=== PATIENT | female | born 1950 | race Caucasian/White ===

== ENCOUNTER → 2017-07-01 | Outpatient (CLI) | payer MEDICARE ==
[~2017-07-01] MED LIST: CALCIUM 600 +1 EAC8 PO; FOLIC ACID1 MG PO; IBUPROFEN PO; METHOTREXATE2.5 M1 PO; MILK THISTLE PO; OMEPRAZOLE20 M1 PO; VASOTEC10 MG PO; VITAMIN D35000 UNIT PO; [UNRECOGNIZED DRUG - OTHER] PO
--- NOTE | 2017-07-01 14:34 | Diagnostic Imaging Report ---
TECHNIQUE: Magnetic resonance imaging of the RIGHT KNEE was performed WITHOUT injected contrast. HISTORY: Fall, medial meniscal tear, reported history of rheumatoid arthritis COMPARISON: None available. FINDINGS: LIGAMENTS AND TENDONS: ACL: Intact PCL: Intact Collateral ligaments: Intact Iliotibial band: Unremarkable Popliteal tendon: Intact Extensor mechanism: Intact JOINT: Menisci: Medial: Predominantly oblique tear of the body and adjacent posterior horn extending to the tibial articular surface with associated 1.1 cm (AP) x 0.4 cm (ML) x 0.6 cm (CC) meniscal fragment flipped into the inferomedial joint recess. Lateral: Intact Articular Cartilage: Medial Compartment: High-grade to full-thickness erosion of the weightbearing cartilage. Adjacent mild subchondral bone marrow edema and cystic changes. Lateral Compartment: Low-grade erosion and fissuring of the weightbearing cartilage. Patellofemoral Compartment: Full-thickness erosion at the patellar apex and adjacent facets. Joint Fluid: Small effusion and synovitis. BONES: No focal or infiltrative bone marrow replacing abnormality. No acute fracture. SOFT TISSUES: Otherwise, unremarkable. IMPRESSION: 1. Patellofemoral and medial compartment predominant tricompartmental degenerative changes, including degenerative tearing of the medial meniscus. An acute on chronic tear is possible given the provided history. 2. Reactive synovitis and small associated joint effusion. Signed by: Dr. Graham Bobby D.O., M.M.M. on 07/01/2017 2:30 PM
== END ==
LOC: MRI 12:14
PROVIDERS: ATTEND Specialist
DX: S83.241A Other tear of medial meniscus, current injury, right knee, initial encounter (principal)

== ENCOUNTER → 2017-07-16 | Day surgery (SDC) | payer MEDICARE ==
[2017-07-14 11:00] LABS: BASOPHILS # (AUTO) 0.1 (0.0-0.1); BASOPHILS % 0.6 % (0.0-1.0); EOSINOPHILS # (AUTO) 0.3 (0.0-0.4); EOSINOPHILS % 3.5 % (0.0-6.0); HEMATOCRIT 42.1 % (34.2-44.1); HEMOGLOBIN 13.9 g/dL (12.0-16.0); LYMPHOCYTES # (AUTO) 1.9 (1.0-3.2); MEAN CORPUSCULAR HEMOGLOBIN 30.7 pg (28-32); MEAN CORPUSCULAR VOLUME 92.9 fL (81-99); MONOCYTES % 11.5 % (4.4-11.3); NEUTROPHILS # (AUTO) 5.3 (2.1-6.9); NEUTROPHILS % 61.8 % (38.7-80.0); PLATELET COUNT 248 x10e3/uL (140-360); RED BLOOD COUNT 4.53 x10e6/uL (3.6-5.1)
--- NOTE | 2017-07-14 11:36 | Diagnostic Imaging Report ---
PROCEDURE: Frontal and lateral views of the chest. COMPARISON: 09/22/13 INDICATIONS: PRE OP FINDINGS: Lines/tubes: None. Lungs: The lungs are well inflated and clear. There is no evidence of pneumonia or pulmonary edema. Unchanged right lower lung field nodular density, likely a calcified granuloma. Pleura: There is no pleural effusion or pneumothorax. Heart and mediastinum: The heart and the mediastinum are normal. Bones: No acute bony abnormality. IMPRESSION: 1. No acute cardiopulmonary disease. Dictated by: Cruz Lorenzo M.D. on 07/14/2017 at 11:45 Electronically approved by: Cruz Lorenzo M.D. on 07/14/2017 at 11:45
[~2017-07-16] MED LIST changes: +ALENDRONATE SOD35 MG PO; +BUPIVACAINE HCL 0.5% INJ 30 ML VIAL INJ ONE; +CEFAZOLIN SOD 2 GM/D5W 50ML 50 ML IV ONE; +DEXAMETHASONE SOD PHOS INJ 4 MG/ML VIAL ONE; +DIOVAN160 MG PO; +EPHEDRINE SULFATE INJ 50 MG/10 ML SYR ONE; +FENTANYL CITRATE/PF 100MCG/2 ML INJ ONE; +GLUCOSAMINE1000 MG PO; +LEVOCETIRIZINE D5 MG PO; +LIDOCAINE HCL 2% LOCAL INJ 5 ML SDV VIAL INJ ONE; +MIDAZOLAM HCL 2 MG/2 ML VIAL ONE; +MONTELUKAST SOD10 MG PO; +MULTI-VITAMIN1 EACH; +NABUMETONE500 MG PO; +NORCO 10-325 T1 EACH PO; +ONDANSETRON HCL INJ 2 MG/ML VIAL ONE; +PROPOFOL IV EMULSION 10 MG/ML 20 ML VIAL ONE; +SEVOFLURANE INHAL SOLN 250 ML PEN BTL ONE; +SUPER B COMPLE150 MG PO
--- NOTE | 2017-07-16 09:07 | Operative Report ---
DATE OF PROCEDURE: July 16, 2017 PREOPERATIVE DIAGNOSES 1. Right knee medial meniscus tear. 2. Right knee degenerative joint disease of the knee. POSTOPERATIVE DIAGNOSES 1. Right knee medial meniscus tear. 2. Right knee degenerative joint disease of the knee. OPERATIONS/PROCEDURES PERFORMED 1. Right knee examination under anesthesia. 2. Right knee arthroscopy. 3. Right knee partial medial meniscectomy. 4. Right knee chondroplasties of the patella, trochlea, medial femoral condyle, medial tibial plateau, lateral femoral condyle and lateral tibial plateau. SENIOR SYSTEMS ENGINEER: None. ANESTHESIA: General endotracheal intubation anesthesia. IV FLUIDS: Per the anesthesia record. BRIEF DESCRIPTION OF THE PATIENT'S OPERATIVE PROCEDURE: Ms. Tineo was taken to the operating room and placed in the supine position on the operating table. Following the induction of general anesthesia as well as endotracheal intubation, the patient's right lower extremity was examined under anesthesia. She was found to have a mild effusion within the knee joint but an otherwise ligamentously stable knee. The patient's lower extremity was prepped and draped in the standard surgical fashion. A 2-portal technique was used to provide this patient arthroscopic evaluation of the knee joint. Examination of the suprapatellar pouch, medial and lateral gutters found no evidence of loose bodies. There was, however, evidence of chondromalacia of the patellar and trochlear surfaces. The scope was advanced to the medial compartment. Examination of the medial compartment demonstrated a torn and macerated medial meniscus. There was also chondromalacia of the articulating surfaces. A combination of biting forceps and a motorized shaver was used to resect the torn portion of the meniscus. Chondroplasties of the medial femoral condyle and medial tibial plateau were performed at this time. The scope was then advanced into the intracondylar notch. The anterior cruciate ligament was identified and found to be intact. The scope was advanced to the lateral compartment. There was chondromalacia of the articulating surfaces. Chondroplasties of the lateral femoral condyle and lateral tibial plateau were performed at this time. The scope was then placed into the suprapatellar pouch, and chondroplasties of the patella and trochlea were performed. The knee was deflated of its sterile normal saline. Each of the portal sites was closed using 4-0 nylon suture. The portal sites as well as the knee itself were then injected with 0.5% Marcaine with epinephrine. Sterile dressings were applied. The patient was awakened and taken to the postanesthesia care unit in stable condition. Job#: [id number] MAEGAN
== END | disposition home or self-care (01) ==
LOC: OR 06:30
PROVIDERS: ATTEND Specialist
DX: S83.241A Other tear of medial meniscus, current injury, right knee, initial encounter (principal); M17.0 Bilateral primary osteoarthritis of knee; M22.41 Chondromalacia patellae, right knee; M06.9 Rheumatoid arthritis, unspecified; G47.33 Obstructive sleep apnea (adult) (pediatric); K44.9 Diaphragmatic hernia without obstruction or gangrene; I10 Essential (primary) hypertension; X58.XXXA Exposure to other specified factors, initial encounter; Z01.812 Encounter for preprocedural laboratory examination; Z01.818 Encounter for other preprocedural examination; Z68.32 Body mass index [BMI] 32.0-32.9, adult
CPT/HCPCS: 29881; 36415; 71046; 85025; 93005; J1100; J2001; J2250; J2405

== ENCOUNTER 2018-02-17 06:30 | Emergency (ER) | payer MEDICARE ==
[~2018-02-17] VITALS: Ht 160 cm; Wt 83.5 kg
[~2018-02-17 06:30] MED LIST changes: -BUPIVACAINE HCL 0.5% INJ 30 ML VIAL INJ ONE; -CEFAZOLIN SOD 2 GM/D5W 50ML 50 ML IV ONE; -DEXAMETHASONE SOD PHOS INJ 4 MG/ML VIAL ONE; -EPHEDRINE SULFATE INJ 50 MG/10 ML SYR ONE; -FENTANYL CITRATE/PF 100MCG/2 ML INJ ONE; -LIDOCAINE HCL 2% LOCAL INJ 5 ML SDV VIAL INJ ONE; -MIDAZOLAM HCL 2 MG/2 ML VIAL ONE; -ONDANSETRON HCL INJ 2 MG/ML VIAL ONE; -PROPOFOL IV EMULSION 10 MG/ML 20 ML VIAL ONE; -SEVOFLURANE INHAL SOLN 250 ML PEN BTL ONE
[2018-02-17] MEDS ORDERED: MAGNESIUM OXID400 MG PO (07:03)
[2018-02-17] MEDS ORDERED: NORCO 10-325 T1 EACH PO (07:03)
[2018-02-17] MEDS ORDERED: ONDANSETRON HCL 4 MG ORAL DISINTEGRATING TAB PO ONE (07:45)
[2018-02-17] MEDS ORDERED: MORPHINE SULFATE INJ 10 MG/ML IM NR (07:45)
[2018-02-17 08:12] VITALS: BP 136/94
--- NOTE | 2018-02-17 11:17 | Diagnostic Imaging Report ---
PROCEDURE:X-RAY RIGHT SHOULDER, COMPLETE COMPARISON:Chest radiograph 07/14/17. INDICATIONS:SHOULDER PAIN, CHRONIC, NO TRAUMA FINDINGS: There are no fractures, dislocations, lytic or blastic lesions. The bones are well-mineralized. Mild joint space narrowing in the right glenohumeral and acromioclavicular joints. CONCLUSION: Mild right glenohumeral and AC joint degenerative changes. No acute osseous abnormality. Dictated by: VIC HURD M.D. on 02/17/2018 at 7:52 Electronically approved by: VIC HURD M.D. on 02/17/2018 at 7:52
== END 2018-02-17 09:00 | disposition home or self-care (01) ==
LOC: ER 06:30
DX: M25.511 Pain in right shoulder (principal); I10 Essential (primary) hypertension; M06.9 Rheumatoid arthritis, unspecified
CPT/HCPCS: 73030; 99283; J2270

== ENCOUNTER → 2018-03-25 | Day surgery (SDC) | payer MEDICARE ==
[2018-03-23 10:05] LABS: BASOPHILS % 0.5 % (0.0-1.0); EOSINOPHILS # (AUTO) 0.4 (0.0-0.4); EOSINOPHILS % 4.9 % (0.0-6.0); HEMATOCRIT 38.8 % (34.2-44.1); LYMPHOCYTES # (AUTO) 1.3 (1.0-3.2); MEAN CORPUSCULAR HGB CONC 33.5 g/dL (31-35); MEAN CORPUSCULAR VOLUME 92.6 fL (81-99); MONOCYTES # (AUTO) 0.9 (0.2-0.8); MONOCYTES % 10.4 % (4.4-11.3); NEUTROPHILS # (AUTO) 5.6 (2.1-6.9); NEUTROPHILS % 67.8 % (38.7-80.0); PLATELET COUNT 231 x10e3/uL (140-360); RED BLOOD COUNT 4.19 x10e6/uL (3.6-5.1); RED CELL DISTRIBUTION WIDTH 13.5 % (11.7-14.4)
[~2018-03-25] MED LIST changes: +CEFAZOLIN SOD 2 GM/D5W 50ML 50 ML IV ONE; +DEXAMETHASONE SOD PHOS INJ 4 MG/ML VIAL ONE; +EPINEPHRINE HCL INJ 1 MG/ML AMP ONE; +FENTANYL CITRATE/PF 100MCG/2 ML INJ ONE; +HYDROCODONE/APAP 10MG-325MG TAB ONE; +IBUPROFEN400 MG PO; +KETOROLAC TROMETHAMINE 30 MG/ML VIAL ONE; +LIDOCAINE 2% /EPINEPHRINE 20 ML SDV INJ ONE; +LIDOCAINE HCL 2% LOCAL INJ 5 ML SDV VIAL INJ ONE; +LOSARTAN POTAS100 MG PO; +MAGNESIUM OXID400 MG PO; +MIDAZOLAM HCL 2 MG/2 ML VIAL ONE; +ONDANSETRON HCL INJ 2 MG/ML VIAL ONE; +PHENYLEPHRINE HCL 1% 10 MG/ML VIAL ONE; +PROPOFOL IV EMULSION 10 MG/ML 20 ML VIAL ONE; +ROCURONIUM BROMIDE 10 MG/ML 5ML VIAL ONE; +ROPIVACAINE 0.5% 5 MG/ML 30 ML SDV ONE; +SEVOFLURANE INHAL SOLN 250 ML PEN BTL ONE
[2018-03-25 11:30] VITALS: BP 116/74
--- NOTE | 2018-03-25 21:05 | Operative Report ---
DATE OF PROCEDURE: March 25, 2018 PREOPERATIVE DIAGNOSES 1. Right shoulder rotator cuff tear. 2. Right shoulder acromioclavicular joint arthrosis. POSTOPERATIVE DIAGNOSES 1. Right shoulder rotator cuff tear. 2. Right shoulder synovitis. 3. Right shoulder labral tear. 4. Right shoulder biceps tendon tear. 5. Right shoulder acromioclavicular joint arthrosis. OPERATIONS AND PROCEDURES PERFORMED 1. The patient underwent right shoulder examination under anesthesia. 2. Right shoulder arthroscopy. 3. Right shoulder arthroscopic debridement of synovitis. 4. Right shoulder arthroscopic debridement of labral tear. 5. Right shoulder arthroscopic biceps tenodesis. 6. Right shoulder arthroscopic rotator cuff repair. 7. Right shoulder arthroscopic subacromial decompression acromioplasty. 8. Right shoulder arthroscopic distal clavicle resection. MANAGER OF PURCHASING: None. ANESTHESIA: General endotracheal intubation anesthesia as well as a regional block. IV FLUIDS: As per the anesthesia record. BRIEF DESCRIPTION OF THE PATIENT'S OPERATIVE PROCEDURE: Ms. Tineo was taken to the operating room, placed in supine position on operating table. Following induction of general anesthesia as well as endotracheal intubation, the patient's right upper extremity was examined under anesthesia. She was found to have full passive range of motion of the shoulder joint. There were no gross abnormalities of the shoulder itself. The patient's upper extremity was prepped and draped in standard surgical fashion. Standard posterolateral and anterior portal was created without difficulty. The scope was placed within the shoulder joint atraumatically. Examination of the glenohumeral articulation demonstrated intra-articular synovitis. There were no loose bodies in the shoulder joint. There was no significant chondromalacia of the glenoid or the humeral surfaces. A probe was placed in the shoulder joint and examination of the biceps tendon demonstrated tearing of the biceps tendon at its base as well as a superior labral tear. The labrum and biceps anchor was unstable. Significant damage within the both structures. Examination of the rotator cuff tissue demonstrated a partial thickness tear of the leading edge of the rotator cuff tissue. Shaver was placed in the shoulder joint and the labrum was debrided. The biceps anchor was also debrided at this time. Given the degree of damage, the decision was then made to provide the patient with biceps tenodesis. The rotator interval was debrided and sutures were shuttled through the rotator interval capturing the biceps tendon. The biceps was then released from its attachment to the superior edge of the glenoid. The stump of the biceps was then debrided. The biceps was then drawn using the sutures into the rotator interval. There was found to be no impingement motion of the shoulder joint. She shaver was also used to debride the torn rotator cuff. The rotator cuff tear was completed and the insertion site for the rotator cuff was debrided to a bleeding bony bed. Synovitis was also debrided at this time. The shoulder was deflated with sterile normal saline. The scope was placed in the subacromial space and significant bursal inflammation was encountered. A lateral portal was created through an outside-in technique. A shaver was used to provide the patient a subacromial decompression. The coracoacromial ligament was also resected at this time. An anterolateral accessory portal was created and through the anterolateral portal, the insertion site was further debrided to a bleeding bony bed. A single triple-loaded suture anchor was inserted in the greater tuberosity of the humerus. The suture arms from that anchor were woven through the rotator cuff tissue and rotator cuff tissue was advanced and tied firmly in its normal insertion site. This resulted in complete reapproximation of the rotator cuff injury. The biceps tenodesis was also completed at this time by tying the sutures over the rotator interval. A shaver was then used to provide the patient with acromioplasty. Once the acromioplasty was completed, the shoulder was placed through motion and the rotator cuff was found to not impinge on the acromion. Attention was then turned to the patient's AC joint arthrosis. The anterior portal was translated into the subacromial space at the level of the AC joint. A shaver was then placed anteriorly and a 1-cm section of the distal clavicle was resected using the shaver. Once this was completed, the shaver was transferred to the anterior portal to confirm the degree of completeness of the distal clavicle resection. The shoulder was then deflated with sterile normal saline. The wounds were closed in a single layer fashion. Sterile dressings were applied and the patient was provided with shoulder immobilizer, awakened and taken to the postanesthesia care unit in stable condition. Job#: [id number] RADHA
== END | disposition home or self-care (01) ==
LOC: OR 06:12
PROVIDERS: ATTEND Specialist
DX: S46.091A Other injury of muscle(s) and tendon(s) of the rotator cuff of right shoulder, initial encounter (principal); S43.431A Superior glenoid labrum lesion of right shoulder, initial encounter; S46.211A Strain of muscle, fascia and tendon of other parts of biceps, right arm, initial encounter; M19.011 Primary osteoarthritis, right shoulder; M65.811 Other synovitis and tenosynovitis, right shoulder; M06.9 Rheumatoid arthritis, unspecified; G47.33 Obstructive sleep apnea (adult) (pediatric); I10 Essential (primary) hypertension; X58.XXXA Exposure to other specified factors, initial encounter; Z88.6 Allergy status to analgesic agent; Z88.8 Allergy status to other drugs, medicaments and biological substances; Z01.810 Encounter for preprocedural cardiovascular examination; Z01.812 Encounter for preprocedural laboratory examination; Z68.32 Body mass index [BMI] 32.0-32.9, adult
CPT/HCPCS: 29824; 29826; 29827; 29828; 36415; 85025; 93005; J0171; J1100; J1885; J2001 ×2; J2250; J2370; J2405; J2795

== ENCOUNTER → 2018-08-21 | Outpatient (CLI) | payer MEDICARE ==
[~2018-08-21] MED LIST changes: -CEFAZOLIN SOD 2 GM/D5W 50ML 50 ML IV ONE; -DEXAMETHASONE SOD PHOS INJ 4 MG/ML VIAL ONE; -EPINEPHRINE HCL INJ 1 MG/ML AMP ONE; -FENTANYL CITRATE/PF 100MCG/2 ML INJ ONE; -HYDROCODONE/APAP 10MG-325MG TAB ONE; -KETOROLAC TROMETHAMINE 30 MG/ML VIAL ONE; -LIDOCAINE 2% /EPINEPHRINE 20 ML SDV INJ ONE; -LIDOCAINE HCL 2% LOCAL INJ 5 ML SDV VIAL INJ ONE; -MIDAZOLAM HCL 2 MG/2 ML VIAL ONE; -ONDANSETRON HCL INJ 2 MG/ML VIAL ONE; -PHENYLEPHRINE HCL 1% 10 MG/ML VIAL ONE; -PROPOFOL IV EMULSION 10 MG/ML 20 ML VIAL ONE; -ROCURONIUM BROMIDE 10 MG/ML 5ML VIAL ONE; -ROPIVACAINE 0.5% 5 MG/ML 30 ML SDV ONE; -SEVOFLURANE INHAL SOLN 250 ML PEN BTL ONE
== END ==
LOC: MAMMO 08:04
PROVIDERS: ATTEND Family Medicine
DX: Z12.31 Encounter for screening mammogram for malignant neoplasm of breast (principal)
CPT/HCPCS: 77067

== ENCOUNTER 2018-11-10 10:30 | Observation (INO) | payer MEDICARE ==
[~2018-11-10] VITALS: Ht 160 cm; Wt 83.0 kg
[~2018-11-10 10:30] MED LIST changes: +DICLOFENAC PO; +MISOPROSTOL100 MCG PO; +SUCRALFATE1 GM PO; +SYNTHROID50 MCG PO
[2018-11-10 11:02] LABS: INR 0.9; PROTHROMBIN TIME 12.6 seconds (11.9-14.5)
[2018-11-10 11:03] LABS: PARTIAL THROMBOPLASTIN TIME 31.4 seconds (23.8-35.5)
[2018-11-10] MEDS ORDERED: CEFAZOLIN SOD 2 GM/D5W 50ML 50 ML IV ONE (11:12)
[2018-11-10] MEDS ORDERED: BACITRACIN 50,000 UNIT VIAL ONE (11:37)
[2018-11-10] MEDS ORDERED: ACETAMINOPHEN 1000 MG/100 ML 100 ML IV ONE (12:59)
[2018-11-10] MEDS: SODIUM CHLORIDE 0.9% 1000ML 1,000 ML IV SCH (15:03)
[2018-11-10] MEDS ORDERED: ACETAMINOPHEN 1000 MG/100 ML IV PRN (15:15)
[2018-11-10] MEDS ORDERED: HYDROMORPHONE 0.2MG/ML-SOD CHL 30ML PCA SYRINGE IV PRN (15:15)
[2018-11-10] MEDS ORDERED: NALOXONE HCL INJ 0.4 MG/ML AMP IV PRN (15:15)
[2018-11-10] MEDS ORDERED: ONDANSETRON HCL INJ 2MG/ML 2ML 2 MG/ML VIAL IV PRN (15:15)
[2018-11-10] MEDS ORDERED: HYDROMORPHONE 2MG/ML 2 MG/ML ML ONE (15:50)
--- NOTE | 2018-11-10 16:10 | NUR ---
ARRIVED VIA STRETCHER FROM PACU, AWAKENS TO VOICE, ANSWERS TO NAME, CLOSES EYES, RR EVEN AND NONLABORED, ZUNIGA TO BSD WITH CLEAR YELLOW URINE NOTED, DRESSING TO RLE JOSEFA, BILAT FOOT PUMPS PLACED PER MD ORDER, ORIENTED TO ROOM AND CALL LIGHT SYSTEM, CALL LIGHT WITHIN REACH, FAMILY AT SIDE
--- NOTE | 2018-11-10 16:27 | Diagnostic Imaging Report ---
Right knee radiographs-2 views History: Postoperative Findings: Status post right total knee arthroplasty and patellar resurfacing with prosthetic components in anatomic alignment. Hardware appears intact. Overlying subcutaneous emphysema and surgical skin radha are present. No evidence of acute fracture. IMPRESSION: Status post right total knee replacement in anatomic alignment. Signed by: Dr. Jamaal Canales MD on 11/10/2018 4:24 PM
[2018-11-10 16:28] VITALS: BP 161/83
--- NOTE | 2018-11-10 17:15 | NUR ---
TOLERATING SIPS OF CLEAR LIQUID, CALL LIGHT WITHIN REACH, PHYSICAL THERAPIST ATTEMPTED TO SEE PT, UNABLE AT THIS TIME DUE TO PT "SLEEPING"
[2018-11-10 17:17] VITALS: BP 161/83
[2018-11-10 17:22] VITALS: BP 161/83
[2018-11-10] MEDS ORDERED: SEVOFLURANE INHAL SOLN 250 ML PEN BTL ONE (17:39)
[2018-11-10] MEDS ORDERED: KETOROLAC TROMETHAMINE 30 MG/ML VIAL ONE (17:39)
[2018-11-10] MEDS ORDERED: LIDOCAINE HCL 2% LOCAL INJ 5 ML SDV VIAL INJ ONE (17:39)
[2018-11-10] MEDS ORDERED: DEXAMETHASONE SOD PHOS INJ 4 MG/ML VIAL ONE (17:39)
[2018-11-10] MEDS ORDERED: PROPOFOL IV EMULSION 10 MG/ML 20 ML VIAL ONE (17:39)
[2018-11-10] MEDS ORDERED: ONDANSETRON HCL INJ 2MG/ML 2ML 2 MG/ML VIAL ONE (17:39)
[2018-11-10] MEDS ORDERED: MIDAZOLAM HCL 2 MG/2 ML VIAL ONE (17:56)
[2018-11-10] MEDS ORDERED: FENTANYL CITRATE/PF 100MCG/2 ML INJ ONE (17:56)
--- NOTE | 2018-11-10 18:15 | NUR ---
MD RAJAN AWARE OF CONSULT
--- NOTE | 2018-11-10 18:37 | NUR ---
PT FAMILY VERIFIED HOME MEDICATIONS WERE CORRECT
[2018-11-10] MEDS ORDERED: LIDOCAINE HCL 2% LOCAL 20 ML VIAL ONE (19:16)
[2018-11-10] MEDS ORDERED: ROPIVACAINE 0.5% 5 MG/ML 30 ML SDV ONE (19:16)
[2018-11-10 19:30] VITALS: BP 161/83
[2018-11-10] MEDS: CEFAZOLIN SOD 1 GM/NS 50ML 50 ML IV SCH (19:43)
[2018-11-10] MEDS ORDERED: HYDROCODONE/APAP 10MG-325MG TAB PO PRN (19:45)
[2018-11-10 20:00] VITALS: BP 142/78
--- NOTE | 2018-11-10 20:37 | Consultation ---
DATE OF CONSULTATION: 11/10/2018 REASON FOR CONSULTATION: Medical management. HISTORY OF PRESENT ILLNESS: This is a 68-year-old white woman, who was admitted to [facility] Emergency room with diagnosis of severe end-stage right knee osteoarthritis. The patient underwent successful right total knee replacement today, which was performed by Dr. John Arguello. The patient states her pain is well controlled at this time. REVIEW OF SYSTEMS: GENERAL: Weight has been stable. No fever or chills. HEENT: No headaches. No vision changes. CARDIOVASCULAR/RESPIRATORY: No chest pain. No shortness of breath, but she does have chronic cough secondary to chronic bronchitis. GASTROINTESTINAL: No nausea, vomiting, or constipation. She does have GERD symptoms. GENITOURINARY: No UTI symptoms. NEUROMUSCULAR: The patient complains of severe arthritis in her left knee also. PAST SURGICAL HISTORY: 1. Right knee meniscal repair. 2. Left knee meniscal repair. 3. Right total knee replacement today. 4. Laparoscopic cholecystectomy. 5. Hysterectomy. 6. Right shoulder surgery (rotator cuff repair). FAMILY HISTORY: Mother of cerebral aneurysm at age 42. ALLERGIES: NO KNOWN DRUG ALLERGIES. SOCIAL HISTORY: Remains single. She states that she does not live alone. She is employed as a customer operations representative. No history of tobacco or alcohol use. MEDICATIONS: Home medications are: 1. Alendronate 35 mg daily. 2. Calcium with vitamin D once daily. 3. Vitamin D3 5000 units daily. 4. Folic acid 1 mg daily. 5. Tyrone 10/325 one daily p.r.n. pain. 6. Zyrtec 5 mg daily. 7. Synthroid 50 mcg daily. 8. Losartan 100 mg daily. 9. Magnesium oxide 400 mg daily. 10. Methotrexate 2.5 mg once a week. 11. Milk Thistle 240 mg daily. 12. Misoprostol 100 mcg b.i.d. 13. Singulair 10 mg daily. 14. Multivitamin daily. 15. Omeprazole 20 mg daily. 16. Carafate 1 g b.i.d. 17. Vitamin super B complex once a daily. 18. Diclofenac 75 mg daily. PHYSICAL EXAMINATION: GENERAL: She is somnolent, but arousable. She does not appear to be any obvious distress. Her adult female friend is at bedside. VITAL SIGNS: Height 5 feet 3 inches, weight 181 pounds, and BMI 32. Blood pressure is 160/80, pulse 82, respiratory rate 12, oxygen saturation 96% on 2 L oxygen, and temperature 96.7. INTEGUMENT: Warm and dry. No pallor, jaundice, or diaphoresis. HEENT: The anterior sclerae with moist mucous membranes. NECK: Supple. CARDIOVASCULAR: Distant heart sounds. Regular rate and rhythm, and S4 gallop. LUNGS: No rales. No rhonchi or wheezes. ABDOMEN: Obese. Benign. EXTREMITIES: No edema. She is currently wearing compression stockings as well as sequential compression devices. NEUROLOGIC: Intact. DIAGNOSES: 1. Status post right total knee replacement. 2. Severe bilateral knee osteoarthritis. 3. Rheumatoid arthritis. 4. Obesity, BMI 32, complicated underlying hypertension and knee degenerative joint disease. 5. Chronic bronchitis. PLAN: 1. Resume home medications, but will hold the diclofenac since she is on Xarelto. 2. Encourage incentive spirometer use to prevent atelectasis. 3. Pain control. 4. Mobilize with physical therapy. 5. We will proceed with oral Xarelto to prevent deep venous thrombosis. 6. We will follow hemoglobin and hematocrit. I would like to thank Dr. Carrizales for this generous consult. I spent 45 minutes in the care of this patient. MD YURI Mcnair/BORIS /[id number] SOURAV
[2018-11-11] VITALS (8 sets, daily range): BP systolic 124–150; BP diastolic 65–90
[2018-11-11] MEDS: SODIUM CHLORIDE 0.9% 1000ML 1,000 ML IV SCH (00:21)
[2018-11-11] MEDS: CEFAZOLIN SOD 1 GM/NS 50ML 50 ML IV SCH ×2 (03:44→11:14)
[2018-11-11] MEDS: LEVOTHYROXINE SODIUM 50 MCG TAB PO SCH (04:40)
[2018-11-11 07:13] LABS: BASOPHILS % 0.2 % (0.0-1.0); EOSINOPHILS % 0.1 % (0.0-6.0); HEMATOCRIT 29.2 % (34.2-44.1); HEMOGLOBIN 9.7 g/dL (12.0-16.0); MEAN CORPUSCULAR HEMOGLOBIN 30.7 pg (28-32); MEAN CORPUSCULAR HGB CONC 33.2 g/dL (31-35); MEAN CORPUSCULAR VOLUME 92.4 fL (81-99); MONOCYTES # (AUTO) 1.6 (0.2-0.8); NEUTROPHILS # (AUTO) 8.5 (2.1-6.9); PLATELET COUNT 303 x10e3/uL (140-360); RED BLOOD COUNT 3.16 x10e6/uL (3.6-5.1); RED CELL DISTRIBUTION WIDTH 12.8 % (11.7-14.4)
--- NOTE | 2018-11-11 07:18 | NUR ---
Rcvd patient in report this am. Patient is awake in bed at this time. Patient is on BAR STEWARD at this time. Patient has a valdez cath. No s/s of distress noted
[2018-11-11 07:30] LABS: ALANINE AMINOTRANSFERASE 17 IU/L (0-55); ALKALINE PHOSPHATASE 77 IU/L (40-150); ANION GAP 11.4 mmol/L (8-16); BLOOD UREA NITROGEN 10 mg/dL (7-26); BUN/CREATININE RATIO 12 (6-25); CALCIUM 9.5 mg/dL (8.4-10.2); CARBON DIOXIDE 26 mmol/L (22-29); CHLORIDE 102 mmol/L (98-107); CREATININE, SERUM 0.84 mg/dL (0.57-1.11); EST GLOMERULAR FILTRATION RATE > 60 ML/MIN (60-); GLUCOSE 107 mg/dL (74-118); POTASSIUM 4.4 mmol/L (3.5-5.1); SODIUM 135 mmol/L (136-145)
[2018-11-11] MEDS: MAGNESIUM OXIDE 400 MG TAB PO SCH (08:40)
[2018-11-11] MEDS: MULTIVITAMINS/MINERALS TAB PO SCH (08:40)
[2018-11-11] MEDS: LORATADINE 10 MG TAB PO SCH (08:40)
[2018-11-11] MEDS: MONTELUKAST SODIUM 10 MG TAB PO SCH (08:40)
[2018-11-11] MEDS: MISOPROSTOL 100 MCG TAB PO SCH ×2 (08:40→17:18)
[2018-11-11] MEDS: FOLIC ACID 1 MG TAB PO SCH (08:40)
[2018-11-11] MEDS: SUCRALFATE 1 GM TAB PO SCH ×2 (08:40→17:18)
[2018-11-11] MEDS: LOSARTAN POTASSIUM 100 MG TAB PO SCH (08:40)
[2018-11-11] MEDS: RIVAROXABAN 10 MG TABLET PO SCH (08:40)
[2018-11-11] MEDS ORDERED: PANTOPRAZOLE SOD 40 MG TABEC PO SCH (09:00)
[2018-11-11] MEDS ORDERED: KETOROLAC TROMETHAMINE 30 MG/ML VIAL IV PRN ×2 (09:45→14:00)
--- NOTE | 2018-11-11 10:44 | NUR ---
DAWIT SPOKE TO PATIENT AT BEDSIDE REGARDING PRE- ARRANGED DISCHARGE PLAN BY DOCTOR JOAQUIN'S OFFICE. PATIENT EDUCATED IN DETAIL THEIR DISCHARGE PLAN TO RECEIVE MEDICAL EQUIPMENT FROM [facility] AND INFORMED OF HOME HEALTH SERVICES IN DETAIL, INCLUDING NUMBER OF VISITS AND WEEKLY SCHEDULE FROM [facility]. PATIENT VERBALLY AGREED. PATIENT WITH WALKER AND UNDERSTANDS TO HAVE IT AT BEDSIDE UPON DISCHARGE. [facility] (P) [phone] PATIENT ACCEPTED AND TO RECEIVE SERVICES ON 11/12. VERIFIED AND CONFIRMED BY JO AT [facility]. HOME HEALTH INFORMED PATIENT WILL BE DISCHARGED TODAY. [facility] ([facility]) (P) [phone] (F)[phone] CM CALLED [facility] AND [facility] CONFIRMED THAT EQUIPMENT IS OUT FOR DELIVERY AND [facility]ALIT WILL HAVE DROPPED OFF THE CPM, 3 IN 1 COMMMODE AND ELEVATED TOILET SEAT WITHIN 45 MIN. PATIENT ALREADY HAS WALKER.
[2018-11-11] MEDS: HYDROCODONE/APAP 10MG-325MG TAB PO PRN ×2 (12:20→17:19)
--- NOTE | 2018-11-11 13:10 | NUR ---
Removed valdez catheter at this time. Tip intact. Patient tolerated well. 10ml removed from balloon. Patient due to void in 6 hours. 300ml of straw urine noted.
[2018-11-11] MEDS ORDERED: MORPHINE SULFATE 2 MG/ML SYR 1ML IV PRN (14:30)
--- NOTE | 2018-11-11 16:12 | NUR ---
Patient voided at this time.
[2018-11-11] MEDS: MORPHINE SULFATE INJ 4 MG/ML INJ 1ML IV PRN (20:15)
[2018-11-12] MEDS: MORPHINE SULFATE INJ 4 MG/ML INJ 1ML IV PRN (01:48)
[2018-11-12 03:55] VITALS: BP 127/72
[2018-11-12] MEDS: HYDROCODONE/APAP 10MG-325MG TAB PO PRN ×3 (03:59→13:46)
[2018-11-12] MEDS: LEVOTHYROXINE SODIUM 50 MCG TAB PO SCH (05:39)
--- NOTE | 2018-11-12 06:00 | NUR ---
CHANGED DRESSING TO RIGHT KNEE. JANUARY INTACT. NO ACTIVE BLEEDING NOTED. PLACED ON CPM 55 AT THIS TIME.
[2018-11-12 07:03] LABS: BASOPHILS % 0.2 % (0.0-1.0); EOSINOPHILS % 0.2 % (0.0-6.0); HEMATOCRIT 25.7 % (34.2-44.1); HEMOGLOBIN 8.7 g/dL (12.0-16.0); LYMPHOCYTES # (AUTO) 1.6 (1.0-3.2); LYMPHOCYTES % 14.4 % (18.0-39.1); MEAN CORPUSCULAR HGB CONC 33.9 g/dL (31-35); MEAN CORPUSCULAR VOLUME 91.5 fL (81-99); MONOCYTES # (AUTO) 1.2 (0.2-0.8); MONOCYTES % 11.2 % (4.4-11.3); NEUTROPHILS # (AUTO) 7.9 (2.1-6.9); NEUTROPHILS % 73.3 % (38.7-80.0); PLATELET COUNT 281 x10e3/uL (140-360); RED BLOOD COUNT 2.81 x10e6/uL (3.6-5.1); RED CELL DISTRIBUTION WIDTH 12.7 % (11.7-14.4)
[2018-11-12 07:22] LABS: ANION GAP 10.8 mmol/L (8-16); BLOOD UREA NITROGEN 9 mg/dL (7-26); BUN/CREATININE RATIO 11 (6-25); CALCIUM 9.7 mg/dL (8.4-10.2); CARBON DIOXIDE 26 mmol/L (22-29); CHLORIDE 101 mmol/L (98-107); CREATININE, SERUM 0.79 mg/dL (0.57-1.11); EST GLOMERULAR FILTRATION RATE > 60 ML/MIN (60-); GLUCOSE 109 mg/dL (74-118); POTASSIUM 3.8 mmol/L (3.5-5.1); SODIUM 134 mmol/L (136-145)
--- NOTE | 2018-11-12 07:31 | NUR ---
Rcvd patient in report this am. Patient is asleep in bed at this time. No s/s of distress noted
[2018-11-12 07:56] VITALS: BP 136/72
[2018-11-12] MEDS: MAGNESIUM OXIDE 400 MG TAB PO SCH (08:34)
[2018-11-12] MEDS: MONTELUKAST SODIUM 10 MG TAB PO SCH (08:34)
[2018-11-12] MEDS: LORATADINE 10 MG TAB PO SCH (08:34)
[2018-11-12] MEDS: MULTIVITAMINS/MINERALS TAB PO SCH (08:34)
[2018-11-12] MEDS: FOLIC ACID 1 MG TAB PO SCH (08:34)
[2018-11-12] MEDS: MISOPROSTOL 100 MCG TAB PO SCH (08:34)
[2018-11-12] MEDS: SUCRALFATE 1 GM TAB PO SCH (08:34)
[2018-11-12] MEDS: LOSARTAN POTASSIUM 100 MG TAB PO SCH (08:35)
[2018-11-12] MEDS ORDERED: PANTOPRAZOLE SOD 40 MG TABEC PO SCH (09:00)
--- NOTE | 2018-11-12 09:30 | NUR ---
Patient is AAOx3. Post op right knee replacement. Dressing to knee clean and dry. Lung melton clear to auscultation. Bowel sounds present x4. Patient passing gas. NO s/s of distress noted. Patient ambulates with a walker.
[2018-11-12 10:26] VITALS: BP 136/72
[2018-11-12] MEDS: RIVAROXABAN 10 MG TABLET PO SCH (11:10)
[2018-11-12 11:41] VITALS: BP 123/64
[2018-11-12] MEDS ORDERED: ONDANSETRON HCL 4 MG ORAL DISINTEGRATING TAB PO PRN (14:00)
[2018-11-12 15:10] VITALS: BP 117/63
--- NOTE | 2018-11-12 15:51 | NUR ---
Patient discharged from facility to home. Patient assisted out via staff in wheelchair. Reviewed RX', discharge paperwork and follow up appts.
--- NOTE | 2018-11-12 23:27 | Operative Report ---
DATE OF PROCEDURE: 11/10/2018 SURGEON: John Arguello MD PREOPERATIVE DIAGNOSIS: Right knee end-stage arthritis. POSTOPERATIVE DIAGNOSIS: Right knee end-stage arthritis. OPERATION AND PROCEDURE PERFORMED: The patient underwent a right total knee arthroplasty with a size E femoral component, a size 3 tibial component, a 20 mm tibial insert and a 32 mm patella button. SUPERVISOR GELATIN PLANT: PATRICIA Moore ANESTHESIA: Regional block plus general anesthesia. IV FLUIDS: Per the anesthesia record. BLOOD LOSS: 100 mL. COMPLICATIONS: None. BRIEF DISCUSSION OF THE PATIENT'S OPERATIVE PROCEDURE: Ms. Tineo was taken to the operating room, placed in supine position on the operating table. Following induction of general anesthesia as well as endotracheal intubation, the patient's right lower extremity was examined under anesthesia. She was found to have a normal-appearing knee with a mild effusion. Her ligaments were stable. She had excellent pulses distally. The patient's lower extremity was prepped and draped in standard surgical fashion. The case was begun by creating incision over the anterior aspect of the knee joint. This incision was carried through skin and subcutaneous tissues to the level of the extensor mechanism. Full-thickness skin flaps were elevated medially and laterally. The extensor mechanism was then incised along the medial border of the patella and both proximally into the quadriceps tendon and distally to the level of the tibial tubercle. The patella was everted laterally and osteophytes were excised from the tibia and femur. The fat pad was excised. The anterior horns of the medial and lateral meniscus were also excised at this time. The patella was then measured for later reaming. The knee was placed in flexion and the anterior and posterior cruciate ligaments were sacrificed. The 5-in-1 femoral cutting block was affixed to the femur. Femoral cuts were then performed. The intercondylar notch cutting block was then affixed to the femur and the intercondylar notch cut was performed. The finishing block was affixed to the femur and the posterior chamfer cut was performed. Attention was then turned to the tibia. The external tibial alignment guide was affixed to the tibia and adjusted appropriately. There was significant medial wear of the tibia. The proximal tibial cut was performed. The keel cutting device was affixed to the tibia and a keel cut was performed. Trial femoral and tibial components were inserted in the knee and the soft tissues were then balanced appropriately. Trial tibial inserts were placed in the tibial tray and the knee was reduced and placed in motion and found to be stable. The patella was then reamed and an appropriate size patellar button was fixed to the undersurface of the patella. The patellofemoral joint was reduced and placed through motion and the patella was found to track appropriately. All trial components were removed. The bone was prepared for cementation. Cement was mixed on the back table. The femoral, tibial, and patellar components were cemented into place. The tourniquet was deflated. Hemostasis was obtained. The knee was copiously irrigated. The extensor mechanism was repaired with nonabsorbable suture in a [id number] fashion. The knee was placed in motion and again the patella was found to track normally and the extensor mechanism was found to be well fixed. The remaining soft tissues were closed in a multilayer fashion. Sterile dressings were applied and the patient was then awakened and taken to postanesthesia care in stable condition. Perlita Sullivan acted as the educational/development assistant for this case was necessary for both prepping and draping the patient as well as retraction of soft tissues that allowed this case to be successful. MD AMADO Ricks/BORIS /[id number]
--- NOTE | 2018-11-13 11:18 | Discharge Summary ---
ADMISSION DIAGNOSIS: End-stage arthritis, right knee. DISCHARGE DIAGNOSIS: End-stage arthritis, right knee. OPERATION/PROCEDURE PERFORMED: The patient underwent a right total knee arthroplasty on November 10, 2018. CONSULTATIONS: Dr. Childs of the general medicine services as well as with the physical therapy department. BRIEF DESCRIPTION OF HOSPITAL STAY: Ms. Tineo was admitted to the hospital on November 10, 2018, and underwent an uncomplicated right total knee arthroplasty. She tolerated the procedure well and was returned immediately postoperatively to the postsurgical floor. Initial postoperative pain was controlled by intravenous followed by oral analgesics. She was mobilized weightbearing to tolerance on her right lower extremity. Her diet was advanced without complication. Her wounds remained clean and dry during her hospital stay. She demonstrated no signs of a DVT during her hospital stay. DVT prophylaxis was provided by Xarelto. A primary care service consultation was obtained to follow the patient clinically and she remained medically stable during her hospital stay. She did initially have difficulty mobilizing with physical therapy as well as had elevated levels of pain requiring an extension of her hospital stay. On her second postoperative day, her pain was under better control and she had mobilized significantly further with physical therapy and was deemed a candidate for discharge home with home health services. DISCHARGE INSTRUCTIONS: She will be discharged home, to weight bear to tolerance in the right lower extremity. She was instructed on performing home exercises, but would also participate in home physical therapy. She will return to her normal diet. She will contact the office with fevers greater than 101.5 that were sustained, excessive drainage from her wounds or intractable pain. She would also contact the office for a return appointment in 10-14 days. Discharge medications were written. MD AMADO Ricks/BORIS /[id number]
== END 2018-11-12 15:57 | disposition home health service (06) ==
LOC: OR 10:30 → PACU V 15:06 → MED/SURG 16:11
PROVIDERS: ADMIT Specialist; ATTEND Specialist
DX: M17.11 Unilateral primary osteoarthritis, right knee (principal); Z01.812 Encounter for preprocedural laboratory examination; M06.9 Rheumatoid arthritis, unspecified; I10 Essential (primary) hypertension; Z90.49 Acquired absence of other specified parts of digestive tract; E66.9 Obesity, unspecified; Z68.32 Body mass index [BMI] 32.0-32.9, adult; J42 Unspecified chronic bronchitis; D63.8 Anemia in other chronic diseases classified elsewhere
CPT/HCPCS: 27447; 36415 ×3; 73560; 80048; 80053; 85025 ×2; 85610; 85730; 86850; 86900; 86920; 97116 ×2; 97161; 97530 ×2; C1713 ×2; C1776; G0378 ×3; J0131; J0690 ×3; J1100; J1170; J1885 ×2; J2001 ×2; J2250; J2270 ×2; J2405; J2704; J2795; J7030; S0164 ×2

== ENCOUNTER 2019-01-23 19:29 | Emergency (ER) | payer MEDICARE ==
[~2019-01-23] VITALS: Ht 160 cm; Wt 79.4 kg
[2019-01-23] MEDS ORDERED: IBUPROFEN 200 MG TAB ONE (19:48)
[2019-01-23] MEDS: IBUPROFEN 600 MG TAB PO STA ×2 (19:49→19:53)
== END 2019-01-23 20:09 | disposition home or self-care (01) ==
LOC: FSED 19:29
DX: H65.01 Acute serous otitis media, right ear (principal)
CPT/HCPCS: 99282

== ENCOUNTER 2019-08-09 10:45 | Observation (INO) | payer MEDICARE ==
[2019-08-05 15:51] LABS: BILIRUBIN,URINE NEGATIVE (NEGATIVE); CLARITY,URINE SL CLOUDY (CLEAR); COLOR,URINE YELLOW (YELLOW); KETONES,URINE NEGATIVE (NEGATIVE); LEUKOCYTE ESTERASE ,URINE TRACE (NEGATIVE); NITRITE,URINE NEGATIVE (NEGATIVE); PROTEIN,URINE DIPSTICK NEGATIVE (NEGATIVE); URINE UROBILINOGEN 0.2 mg/dL (0.2 - 1)
[~2019-08-09] VITALS: Ht 160 cm; Wt 90.9 kg
[~2019-08-09 10:45] MED LIST changes: +BISOPROLOL FUMAR5 MG PO; +IRON PO; +LORAZEPAM PO; +METHOTREXATE2.5 MG PO; +TYLENOL WITH C1 EACH PO; +XYZAL5 MG PO
[2019-08-09] MEDS ORDERED: CEFAZOLIN SOD 1 GM/NS 50ML 100 ML IV ONE (11:32)
[2019-08-09] MEDS ORDERED: BACITRACIN 50,000 UNIT VIAL ONE (12:33)
[2019-08-09] MEDS ORDERED: ACETAMINOPHEN 1000 MG/100 ML IV ONE (14:04)
[2019-08-09] MEDS ORDERED: SEVOFLURANE INHAL SOLN 250 ML PEN BTL ONE (14:04)
[2019-08-09] MEDS ORDERED: CEFAZOLIN SOD 1 GM VIAL ONE (14:04)
[2019-08-09] MEDS ORDERED: LIDOCAINE HCL 2% LOCAL INJ 5 ML SDV VIAL INJ ONE (14:04)
[2019-08-09] MEDS ORDERED: DEXAMETHASONE SOD PHOS INJ 4 MG/ML VIAL ONE (14:04)
[2019-08-09] MEDS ORDERED: PROPOFOL IV EMULSION 10 MG/ML 20 ML VIAL ONE (14:04)
[2019-08-09] MEDS ORDERED: ONDANSETRON HCL INJ 2MG/ML 2ML 2 MG/ML VIAL ONE (14:04)
[2019-08-09] MEDS ORDERED: BUPIVACAINE HCL 0.5% INJ 30 ML VIAL INJ ONE (14:14)
[2019-08-09] MEDS ORDERED: EPINEPHRINE HCL 1:1000 1ML 1 MG/ML AMP ONE (14:14)
[2019-08-09] MEDS ORDERED: FENTANYL CITRATE/PF 100MCG/2 ML INJ ONE ×2 (14:29→18:25)
[2019-08-09] MEDS ORDERED: MIDAZOLAM HCL 2 MG/2 ML VIAL ONE (14:29)
[2019-08-09] MEDS: SODIUM CHLORIDE 0.9% 1000ML 1,000 ML IV SCH (16:29)
[2019-08-09] MEDS ORDERED: DIPHENHYDRAMINE HCL INJ 50 MG/ML VIAL IM/IV PRN (16:30)
[2019-08-09] MEDS ORDERED: NALOXONE HCL INJ 0.4 MG/ML AMP IV PRN (16:30)
[2019-08-09] MEDS ORDERED: ONDANSETRON HCL INJ 2MG/ML 2ML 2 MG/ML VIAL IV PRN (16:30)
[2019-08-09] MEDS: HYDROMORPHONE 0.2MG/ML-SOD CHL 30ML PCA SYRINGE IV PRN (16:50)
[2019-08-09] MEDS ORDERED: ACETAMINOPHEN 1000 MG/100 ML IV PRN (17:00)
[2019-08-09] MEDS ORDERED: HYDROMORPHONE 1MG/1ML INJ ONE (17:04)
--- NOTE | 2019-08-09 17:20 | Diagnostic Imaging Report ---
EXAMINATION: KNEE LEFT 1-2 VIEWS INDICATION: Postoperative COMPARISON: None FINDINGS: Portable AP and lateral images of the left knee demonstrate immediate postoperative findings of left total knee replacement. Alignment appears anatomic. No unexpected fracture. Postoperative subcutaneous soft tissue emphysema. Small joint effusion. Surgical skin radha in place. IMPRESSION: Anatomic alignment status post left total knee replacement. Signed by: Rupesh Rodarte MD on 08/09/2019 5:18 PM
[2019-08-09 19:15] VITALS: BP 136/83
[2019-08-09 20:00] VITALS: BP 136/83
[2019-08-09] MEDS: CEFAZOLIN SOD 1 GM/NS 50ML 50 ML IV SCH (22:00)
[2019-08-10] VITALS (9 sets, daily range): BP systolic 97–138; BP diastolic 52–78
[2019-08-10] MEDS: SODIUM CHLORIDE 0.9% 1000ML 1,000 ML IV SCH ×3 (02:29→22:29)
[2019-08-10] MEDS: CEFAZOLIN SOD 1 GM/NS 50ML 50 ML IV SCH ×2 (06:00→15:48)
--- NOTE | 2019-08-10 06:14 | NUR ---
Medical Consultation Requesting physician; Reason for consult; Medical mgmt cc: knee dysfunction due to arthritis HPI: 69yoF, admitted by for mgmt of end stage knee degererative changes, underwent left TKR. PMH: HTN, RA, Hypothyroidism, osteoporosis, GERD PSx: joint replacement allergies; see emr Fh/SH; single; no cigs meds; see MAR ROS: no f/c/s/N/V/D/GUPTA/skin changes/vision changes/back pain/dizziness/cp/sob v/s revd PE tired appearing anicteric ns1s2 mod bs soft nt nd LEFT LEG/KNEE DRESSING; LEFT LEG IN ORTHOPEDIC DEVICE a&ox3; grande skin dry n. affect labs/meds revd A/P: 69yoF End stage degenerative changes left knee- s/p TKR KNee pain- prn pain meds; RA- resume MTX outpt. Hypothyroidism- synthroid HTn- BB GERD- ppi Osteoporosis- resume bisphosphonate outpt Prop: apixaban Dispo; PT consult; Carl Zamora MD, PhD.
[2019-08-10 06:46] LABS: ANION GAP 15.7 mmol/L (8-16); CALCIUM 8.9 mg/dL (8.4-10.2); CREATININE, SERUM 1.2 mg/dL (0.57-1.11); POTASSIUM 4.7 mmol/L (3.5-5.1)
--- NOTE | 2019-08-10 07:05 | NUR ---
RECEIVED BEDSIDE REPORT FROM TAMELA SANCHEZ. PATIENT RESTING AT THIS TIME, NO VISIBLE SIGNS OF DISTRESS NOTED. CPM TO LEFT KNEE. CALL LIGHT WITHIN REACH.
[2019-08-10] MEDS ORDERED: LEVOTHYROXINE SODIUM 50 MCG TAB PO SCH (07:30)
[2019-08-10 07:48] LABS: HEMATOCRIT 32.5 % (34.2-44.1); HEMOGLOBIN 10.7 g/dL (12.0-16.0); MEAN CORPUSCULAR HEMOGLOBIN 31.6 pg (28-32); MEAN CORPUSCULAR HGB CONC 32.9 g/dL (31-35); MEAN CORPUSCULAR VOLUME 95.9 fL (81-99); RED BLOOD COUNT 3.39 x10e6/uL (3.6-5.1); RED CELL DISTRIBUTION WIDTH 14.3 % (11.7-14.4)
[2019-08-10 07:49] LABS: EOSINOPHILS % 1.4 % (0.0-6.0); LYMPHOCYTES % 11.5 % (18.0-39.1); MONOCYTES % 13.3 % (4.4-11.3); NEUTROPHILS % 73.2 % (38.7-80.0); PLATELET COUNT 234 x10e3/uL (140-360)
[2019-08-10 07:50] LABS: BASOPHILS % 0.1 % (0.0-1.0)
[2019-08-10] MEDS: HYDROMORPHONE 0.2MG/ML-SOD CHL 30ML PCA SYRINGE IV PRN (08:40)
[2019-08-10] MEDS: MONTELUKAST SODIUM 10 MG TAB PO SCH (08:48)
[2019-08-10] MEDS: PANTOPRAZOLE SOD 40 MG TABEC PO SCH (08:48)
[2019-08-10] MEDS: FOLIC ACID 1 MG TAB PO SCH (08:48)
[2019-08-10] MEDS: LORATADINE 10 MG TAB PO SCH (08:48)
[2019-08-10] MEDS: RIVAROXABAN 10 MG TABLET PO SCH (08:48)
[2019-08-10] MEDS: LOSARTAN POTASSIUM 100 MG TAB PO SCH (08:54)
[2019-08-10 09:21] LABS: EOSINOPHILS # (AUTO) 0.1 (0.0-0.4); LYMPHOCYTES # (AUTO) 1.1 (1.0-3.2); MONOCYTES # (AUTO) 1.3 (0.2-0.8); NEUTROPHILS # (AUTO) 7.2 (2.1-6.9)
[2019-08-10] MEDS ORDERED: ONDANSETRON HCL 4 MG ORAL DISINTEGRATING TAB PO PRN (09:45)
--- NOTE | 2019-08-10 12:04 | NUR ---
Spoke to Ariela with [facility], she states they are set up to see patient. Patient states she has 2 walkers and equipment. LEILANI signed, ronal signed, info for home health companies given to patients
[2019-08-10] MEDS ORDERED: HYDROCODONE/APAP 5MG-325MG TAB PO PRN (12:45)
--- NOTE | 2019-08-10 12:50 | NUR ---
ZUNIGA CATHETER DISCONTINUED WITHOUT INCIDENT. PATIENT TOLERATED REMOVAL WELL. PERICARE DONE.
--- NOTE | 2019-08-10 14:05 | NUR ---
Visit made by the Spiritual Care Department Pastoral Visitor, Gabbi Norris. PV provided pastoral presence, prayer, hospitality, and supportive listening. Pastoral Visitor informed pt/family of the scope of [facility] and availability. NIDA FRAIRE Senior Research Manager Spiritual Care Department O: [phone] Pager: [phone] ([phone] number calling from)
[2019-08-10] MEDS: HYDROCODONE/APAP 5MG-325MG TAB PO PRN ×2 (16:22→22:25)
[2019-08-10] MEDS ORDERED: NON-FORMULARY MEDICATION (Bisoprolol Fumarate 5 MG) PO SCH (21:00)
[2019-08-10] MEDS ORDERED: BISOPROLOL FUMARATE 10 MG TAB PO SCH (21:00)
--- NOTE | 2019-08-10 23:00 | NUR ---
Pt refused foot pumps. Addendum: 08/11/19 at 0547 by Yolanda Ramirez RN wrong entry
[2019-08-11] VITALS: BP 121/57
[2019-08-11 04:00] VITALS: BP 148/79
[2019-08-11] MEDS: HYDROCODONE/APAP 5MG-325MG TAB PO PRN ×2 (04:40→11:13)
--- NOTE | 2019-08-11 05:48 | NUR ---
Scant amount of blood noted on the vernon wrap to the left knee. no active bleeding noted. Patient refused to change dressing, dressing reinforced by RN. Karen Arguello to see her dressing. Patient refused to do CPM at this time due to discomfort and pain. Pain medication was given as prn an hour ago.
[2019-08-11 05:57] LABS: HEMATOCRIT 27.1 % (34.2-44.1)
[2019-08-11 06:30] LABS: BASOPHILS % 0.3 % (0.0-1.0); EOSINOPHILS # (AUTO) 0.1 (0.0-0.4); EOSINOPHILS % 0.5 % (0.0-6.0); HEMATOCRIT 26.9 % (34.2-44.1); HEMOGLOBIN 9.2 g/dL (12.0-16.0); LYMPHOCYTES # (AUTO) 1.3 (1.0-3.2); LYMPHOCYTES % 12.4 % (18.0-39.1); MEAN CORPUSCULAR HEMOGLOBIN 31.5 pg (28-32); MEAN CORPUSCULAR HGB CONC 34.2 g/dL (31-35); MEAN CORPUSCULAR VOLUME 92.1 fL (81-99); MONOCYTES # (AUTO) 1.7 (0.2-0.8); MONOCYTES % 15.7 % (4.4-11.3); NEUTROPHILS # (AUTO) 7.5 (2.1-6.9); NEUTROPHILS % 70.5 % (38.7-80.0); PLATELET COUNT 195 x10e3/uL (140-360); RED BLOOD COUNT 2.92 x10e6/uL (3.6-5.1); RED CELL DISTRIBUTION WIDTH 13.9 % (11.7-14.4)
[2019-08-11 06:43] LABS: ANION GAP 12.9 mmol/L (8-16); CALCIUM 9.1 mg/dL (8.4-10.2); CREATININE, SERUM 1.08 mg/dL (0.57-1.11); POTASSIUM 3.9 mmol/L (3.5-5.1)
[2019-08-11 07:31] LABS: EOSINOPHILS % (MANUAL) 1 % (0-7); LYMPHOCYTES % (MANUAL) 15 % (19-48); MONOCYTES % (MANUAL) 12 % (3.4-9.0); NEUTROPHILS % (MANUAL) 72 % (40-74)
[2019-08-11 07:32] LABS: PLATELET ESTIMATE ADEQUATE; PLATELET MORPHOLOGY COMMENT NORMAL; RBC MORPHOLOGY COMMENT NORMAL
[2019-08-11 08:24] VITALS: BP 129/68
[2019-08-11 08:27] VITALS: BP 129/68
[2019-08-11] MEDS: SODIUM CHLORIDE 0.9% 1000ML 1,000 ML IV SCH (08:29)
[2019-08-11] MEDS: PANTOPRAZOLE SOD 40 MG TABEC PO SCH (08:30)
[2019-08-11] MEDS: RIVAROXABAN 10 MG TABLET PO SCH (09:00)
[2019-08-11] MEDS: LOSARTAN POTASSIUM 100 MG TAB PO SCH (09:00)
[2019-08-11] MEDS: FOLIC ACID 1 MG TAB PO SCH (10:00)
[2019-08-11] MEDS: LORATADINE 10 MG TAB PO SCH (10:00)
[2019-08-11] MEDS: MONTELUKAST SODIUM 10 MG TAB PO SCH (10:00)
[2019-08-11 12:19] VITALS: BP 128/76
[2019-08-11] MEDS ORDERED: NORCO 5-325 TA1 EACH PO (13:59)
[2019-08-11] MEDS ORDERED: ELIQUIS2.5 MG PO (14:01)
--- NOTE | 2019-08-11 14:38 | NUR ---
MD PEPE INTO SEE PT, DRESSING CHANGED , DISCHARGE INSTRUCTIONS REVIEWED WITH PT, PT WHEELED OFF UNIT VIA WC FOR DISCHARGE
--- NOTE | 2019-08-11 16:05 | Operative Report ---
DATE OF PROCEDURE: 08/09/2019 SURGEON: John Arguello MD PREOPERATIVE DIAGNOSIS: End-stage arthritis, left knee. POSTOPERATIVE DIAGNOSIS: End-stage arthritis, left knee. OPERATIONS AND PROCEDURES PERFORMED: The patient underwent a left total knee arthroplasty with a size E femoral component, a size 4 tibial component, a 20 mm tibial insert, and a 35 mm patella. HYPERBARIC WELDER DIVER: PATRICIA Moore. ANESTHESIA: General endotracheal intubation anesthesia as well as regional block. IV FLUIDS: Per the anesthesia record. BLOOD LOSS: Approximately 100 mL. COMPLICATIONS: None. BRIEF DESCRIPTION OF THE PATIENT'S OPERATIVE PROCEDURE: Ms. Tineo was taken to the operating room and placed in the supine position on the operating table. Following induction of general anesthesia as well as endotracheal intubation, the patient's left lower extremity was examined under anesthesia. She was found to have a minimal effusion within the knee joint. Her motion was well maintained. There was patellofemoral crepitus. The patient's lower extremity was prepped and draped in standard surgical fashion. Case was begun by creating an incision along the long axis of the lower extremity. This incision was carried through the skin and subcutaneous tissues to the level of the extensor mechanism. Full-thickness skin flaps were then elevated both medially and laterally. The extensor mechanism was then incised along its medial border. The patella was everted laterally and osteophytes were removed from the patella, femur and tibia. The fat pad was excised and the anterior horns of the medial and lateral meniscus were also excised at this time. The patella was measured for later reaming. The knee was placed in flexion and the anterior and posterior cruciate ligaments were sacrificed. The femur was then sized and the 5-in-1 cutting block was affixed to the femur. The femoral cuts were performed. The intercondylar notch cutting block was affixed to the femur and the intercondylar notch cut was performed. The finishing block was placed on the femur and the remaining cuts were performed. Attention was then turned to the tibia. The external tibial alignment guide was affixed to the lower extremity and adjusted appropriately. Retractors were carefully placed about the knee to protect vital and neurovascular structures. The proximal tibia was cut without difficulty. The keel cutting device was then used to create a channel for the implant. The trial femoral and tibial components were then inserted. The soft tissues were balanced. Tibial inserts were placed within the tibial tray until the knee was found to be stable in both flexion and extension. The patella was then reamed and appropriate size trial patellar button was affixed to the undersurface of the patella. The patellofemoral joint was then reduced and placed through range of motion and found to be stable. The trial components were removed. The bone was prepared for cementation. Cement was mixed on the back table. The femoral, tibial, and patellar components were then cemented into place. The wound was copiously irrigated. The tourniquet was deflated and hemostasis was obtained. The wound was then closed in a multilayer fashion. The extensor mechanism was closed. The tourniquet was deflated and hemostasis was obtained. The extensor mechanism was repaired with nonabsorbable sutures in a [id number] fashion. The remaining soft tissues were closed in a multilayer fashion. Sterile dressings were applied and the patient was awakened and taken to the postanesthesia care in stable condition. Perlita Sullivan acted as assistant warehouse manager for this case and was necessary for the prepping and draping the patient as well as the retraction of soft tissues and the closure of the wound to allow this case to be successful. MD AMADO Ricks/BORIS /[id number]
[2019-08-11] MEDS ORDERED: LOSARTAN POTASSIUM 100 MG TAB PO SCH (21:00)
[2019-08-11] MEDS ORDERED: LEVOTHYROXINE SODIUM 50 MCG TAB PO SCH (21:00)
[2019-08-12] MEDS ORDERED: LEVOTHYROXINE SODIUM 50 MCG TAB PO SCH (06:00)
== END 2019-08-11 14:51 | disposition home or self-care (01) ==
LOC: OR 10:45 → MED/SURG 20:39
PROVIDERS: ADMIT Specialist; ATTEND Specialist
DX: M17.12 Unilateral primary osteoarthritis, left knee (principal); I10 Essential (primary) hypertension; G47.33 Obstructive sleep apnea (adult) (pediatric); E03.9 Hypothyroidism, unspecified; M06.9 Rheumatoid arthritis, unspecified
CPT/HCPCS: 27447; 36415 ×2; 73560; 80048 ×2; 81003; 83735; 85014; 85018; 85025 ×2; 86850; 86900; 86920; 97116 ×2; 97139; 97161; 97530 ×2; C1713 ×2; C1776; G0378 ×3; J0131; J0171; J0690 ×3; J1100; J1170; J2001; J2250; J2405 ×2; J2704; J3010; J7030 ×2; Q0162; S0164 ×2

== ENCOUNTER 2020-02-25 19:31 | Emergency (ER) | payer MEDICARE ==
[~2020-02-25] VITALS: Ht 160 cm; Wt 85.7 kg
[~2020-02-25 19:31] MED LIST changes: +ELIQUIS2.5 MG PO; +NORCO 5-325 TA1 EACH PO
[2020-02-25] MEDS ORDERED: SODIUM CHLORIDE 0.9% 1000ML 1,000 ML IV STA (19:50)
[2020-02-25] MEDS ORDERED: DIPHENHYDRAMINE HCL INJ 50 MG/ML VIAL IV ONE (20:00)
[2020-02-25] MEDS ORDERED: DEXAMETHASONE SOD PHOS 10 MG/1 ML VIAL IV ONE (20:00)
[2020-02-25] MEDS ORDERED: ONDANSETRON HCL INJ 2MG/ML 2ML 2 MG/ML VIAL IV ONE (20:00)
[2020-02-25] MEDS ORDERED: FAMOTIDINE 20 MG/2 ML VIAL IV ONE ×2 (20:00→20:47)
[2020-02-25] MEDS ORDERED: KETOROLAC TROMETHAMINE 30 MG/ML VIAL IV ONE (20:00)
--- NOTE | 2020-02-25 20:15 | Emergency Department Note ---
History of Present Illnes History of Present Illness History of Present Illness This is a 69 year old female c/o left temporal GUPTA for 2 days no f/c no n/v no neck pain, no change in vision. She had similar GUPTA last year, lating for 10 days, She was told it was her "left ear" Past Medical History Hypertension, GERD Other Medical History RA Sleep apnea +CPAP Past Surgical History: Cholecystectomy, Hysterectomy, Tubal Ligation Other Surgery right knee . Arrival Mode: Car Immigration Services Officer Required: No Onset (how long ago): day(s) Radiation: Reports non-radiation Severity: moderate Onset quality: gradual Duration (how long): day(s) Timing of current episode: intermittent Progression: waxing and waning Chronicity: recurrent Relieving factors: none Exacerbating factors: none Associated symptoms: Reports denies other symptoms Treatments prior to arrival: none Previous service: medications given Past Medical/Family History Physician Review I have reviewed the patient's past medical and family history. Any updates have been documented here. Past Medical History Recent Fever: No Clinical Suspicion of Infectio: No Past Medical History: Hypertension, GERD Other Medical History: RA Sleep apnea +CPAP Past Surgical History: Cholecysctectomy, Hysterectomy, Tubal Ligation Other Surgery: right knee Social History Smoking Cessation: Unknown if ever smoked Any Illegal Drug Use: No TB Exposure/Symptoms: No Physically hurt or threatened: No Family History Family history of heart diseas: No Other Last Tetanus: unk Any Pre-Existing Lines (PICC,: No Review of Systems Review of Systems Constitutional: Reports no symptoms EENTM: Reports no symptoms Cardiovascular: Reports no symptoms Respiratory: Reports no symptoms Gastrointestinal: Reports no symptoms Genitourinary: Reports no symptoms Musculoskeletal: Reports no symptoms Integumentary: Reports no symptoms Neurological: Reports as per HPI Psychological: Reports no symptoms Endocrine: Reports no symptoms Hematological/Lymphatic: Reports no symptoms Physical Exam Related Data Allergies: Uncoded Allergies: DARVOCET (Allergy, Unknown, 08/09/19) Vital signs reviewed: Yes Physical Exam CONSTITUTIONAL Constitutional: Present well-developed, Present well-nourished HENT HENT: Present normocephalic, Present atraumatic, Present oropharynx clear/moist, Present nose normal HENT L/R: Present left ext ear normal, Present right ext ear normal EYES Eyes: Reports PERRL, Reports conjunctivae normal NECK Neck: Present ROM normal, Present supple, Present other (negative Brudzinski's sign) PULMONARY Pulmonary: Present effort normal, Present breath sounds normal CARDIOVASCULAR Cardiovascular: Present regular rhythm, Present heart sounds normal, Present capillary refill normal, Present normal rate GASTROINTESTINAL Abdominal: Present soft, Present nontender, Present bowel sounds normal GENITOURINARY Genitourinary: Present exam deferred SKIN Skin: Present warm, Present dry MUSCULOSKELETAL Musculoskeletal: Present ROM normal NEUROLOGICAL Neurological: Present alert, Present oriented x 3, Present no gross motor or sensory deficits PSYCHOLOGICAL Psychological: Present mood/affect normal, Present judgement normal Results Laboratory Lab results reviewed: Yes Laboratory comments Cr 1.6 Imaging Imaging results reviewed: Yes (CT head) Imaging Comments No acute Diagnostics Tests Diagnostic comments doubt infection Assessment & Plan Medical Decision Making MDM doubt infection or meningitis Reassessment Reassessment time: 21:57 Reassessment much improved Assessment & Plan Final Impression: (1) Headache Depart Disposition: HOME, SELF-longterm Meds Reported Medications Apixaban (Eliquis) 2.5 Mg Tablet, 2.2 MG PO BID, #14 08/11/19 Hydrocodone Bit/Acetaminophen (NORCO 5-325 TABLET) 1 Each Tablet, 1-2 EACH PO Q6H PRN for Mild Pain (1-3) or Fever>100.8, #40 TAB 08/11/19 Nabumetone (NABUMETONE) 500 Mg Tab, 500 MG PO BID 08/05/19 [Iron] No Conflict Check, 325 MG PO DAILY 08/05/19 [Lorazepam] No Conflict Check, 1 MG PO PRN 08/05/19 Levocetirizine Dihydrochloride (XYZAL) 5 Mg Tablet, 5 MG PO DAILY THERAPEUTICALLY SUBSTITUTED WITH LORATADINE 08/05/19 Bisoprolol Fumarate (BISOPROLOL FUMARATE) 5 Mg Tablet, 5 MG PO HS 08/05/19 Levothyroxine Sodium (SYNTHROID) 50 Mcg Tab, 50 MCG PO HS, #30 TAB 11/09/18 Losartan Potassium (LOSARTAN POTASSIUM) 100 Mg Tablet, 50 MG PO HS, TAB 03/23/18 Montelukast Sodium (MONTELUKAST SODIUM) 10 Mg Tablet, 10 MG PO DAILY, #30 TAB 07/15/17 Cholecalciferol (Vitamin D3) (VITAMIN D3) 5,000 Unit Capsule, PO DAILY 06/23/13 Milk Thst/Dandel/Fennl/Licoric (MILK THISTLE 240 MG XTRA CAP) 1 Each Capsule, 150 MG PO DAILY 06/23/13 Omeprazole (OMEPRAZOLE) 20 Mg Tablet.dr, 40 MG PO DAILY 06/23/13 Folic Acid (FOLIC ACID) 1 Mg Tablet, 1 MG PO 06/23/13 Medications in the ED Famotidine 20 mg ONCE ONCE IV ; Start 02/25/20 at 20:00; Stop 02/25/20 at 20:01; Status UNV Sodium Chloride 1,000 ml @ 0 mls/hr Q0M STAT IV ; Start 02/25/20 at 19:50; Stop 02/25/20 at 19:55; Status DC Diphenhydramine HCl 25 mg NOW ONCE IV ; Start 02/25/20 at 20:00; Stop 02/25/20 at 20:01; Status UNV Dexamethasone Sodium Phosphate 10 mg ONCE ONCE IV ; Start 02/25/20 at 20:00; Stop 02/25/20 at 20:01; Status UNV Ketorolac Tromethamine 30 mg ONCE ONCE IV ; Start 02/25/20 at 20:00; Stop 02/25/20 at 20:01; Status UNV Ondansetron HCl 4 mg ONCE ONCE IV ; Start 02/25/20 at 20:00; Stop 02/25/20 at 20:01; Status UNV Physician Attestation Provider Attestation need to f/u with neurologist for MRI, work up for vasculitis ([place]) Rx Esgic # 20 Zofran ODT 4mg # 20 DAVID CAREY MD Feb 25, 2020 20:14
--- OUTSIDE RECORDS SUMMARY | 2020-02-25 20:22 | XMS REPORT | Continuity of Care Document ---
Author Author [facility] t Organization [facility] Address [address] [place] [address] Phone Unavailable Care Team Providers Care Construction Pit Worker Name Role Phone OTTO SCOTT MD PCP ARLEEN PEPE Attdenias Unavailable TOTO SCOTT Attphys Unavailable Dot CAREY Attphys Unavailable MARBELLA BOGGS Admphys Unavailable ARLEEN PEPE Admkamila Unavailable Payers Payer Name Policy Type Policy Number Effective Date Expiration Date Baylee ANDRADE [id number] 2019 00:00:00 [facility] Medicare A & B [id number] 2016 00:00:00 [facility] Problems This patient has no known problems. Allergies, Adverse Reactions, Alerts Allergy Name Allergy Type Status Severity Reaction(s) Onset Date Inacti ve Date Treating Clinician Comments Source JERRIDot Allergy to Substance Active 2019-08-09 00:00:00 [facility] Medications Ordered Medication Name Filled Medication Name Start Date Stop Da te Current Medication? Ordering Clinician Indication Dosage Frequency Signature (SIG) Comments Components Source Apixaban (Eliquis) 2.5 Mg Tablet Apixaban (Eliquis) 2.5 Mg Tablet Yes 2.2 Twice A Day [facility] Bisoprolol Fumarate 5 Mg Tablet Bisoprolol Fumarate 5 Mg Tablet Yes 5 Bedtime [facility] Cholecalciferol (Vitamin D3) (Vitamin D3) 5,000 Unit C apsule Cholecalciferol (Vitamin D3) (Vitamin D3) 5,000 Unit Capsule Yes Daily [facility] Folic Acid 1 Mg Tablet Folic Acid 1 Mg Tablet Yes 1 [facility] Hydrocodone Bit/Acetaminophen ([place] 5-325 Tablet) 1 E ach Tablet Hydrocodone Bit/Acetaminophen ([place] 5-325 Tablet) 1 Each Tablet Yes Every 6 Hours as needed for Mild Pain (1-3) Or Fever>100.8 [facility] Iron Iron Yes 325 Daily [facility] Levocetirizine Dihydrochloride (Xyzal) 5 Mg Tablet Lev ocetirizine Dihydrochloride (Xyzal) 5 Mg Tablet Yes 5 Da ban [facility] Levothyroxine Sodium (Synthroid) 50 Mcg Tab Levothyrox ine Sodium (Synthroid) 50 Mcg Tab Yes 50 Bedtime [facility] Lorazepam Lorazepam Yes 1 As Needed [facility] Losartan Potassium 100 Mg Tablet Losartan Potassium 100 Mg Tablet Yes 50 Bedtime [facility] Milk Thst/Dandel/Fennl/Licoric (Milk Thistle 240 Mg Xt ra Cap) 1 Each Capsule Milk Thst/Dandel/Fennl/Licoric (Milk Thistle 240 Mg Xtra Cap) 1 Each Capsule Yes 150 Daily [facility] Montelukast Sodium 10 Mg Tablet Montelukast Sodium 10 Mg Tablet Yes 10 Daily [facility] Nabumetone 500 Mg Tab Nabumetone 500 Mg Tab Yes 500 Twice A Day [facility] Omeprazole 20 Mg Tablet. Omeprazole 20 Mg Tablet. Yes 40 Daily [facility] Acetaminophen With Codeine (Tylenol With Codeine #3 Tablet) 1 Each Tablet, 300 Mg Oral Acetaminophen With Codeine (Tylenol With Codeine #3 Tablet) 1 Each Tablet, 300 Mg Oral 2019-08-11 00:00:00 No 300 As N eeded [facility] Alendronate Sodium 35 Mg Tablet, 35 Mg Oral Alendronat e Sodium 35 Mg Tablet, 35 Mg Oral 2019-08-11 00:00:00 No 35 Daily [facility] Methotrexate Sodium (Methotrexate) 2.5 Mg Tablet, 2.5 Mg Oral Methotrexate Sodium (Methotrexate) 2.5 Mg Tablet, 2.5 Mg Oral 2019-08-11 00:00:00 No 2.5 Q Weekly [facility] Levocetirizine Dihydrochloride 5 Mg Tablet, 5 Mg Oral Levocetirizine Dihydrochloride 5 Mg Tablet, 5 Mg Oral 2019-08-09 00:00:00 No 5 Daily [facility] Misoprostol 100 Mcg Tab, 100 Mcg Oral Misoprostol 100 Mcg Tab, 1 00 Mcg Oral 2019-08-09 00:00:00 No 100 Twice A Day [facility] Calcium Carb/Vit D3/Minerals (Calcium 600 + D Tablet) 1 Each Tablet, Oral Calcium Carb/Vit D3/Minerals (Calcium 600 + D Tablet) 1 Each Tablet, Oral 2019-08-05 00:00:00 No Daily [facility] Magnesium Oxide 400 Mg Tablet, Mg Oral Magnesium Oxide 400 Mg Tablet, Mg Oral 2019-08-05 00:00:00 No Daily [facility] Multivitamin (Multi-Vitamin Daily) 1 Each Tablet, 1 Ta b Multivitamin (Multi- Vitamin Daily) 1 Each Tablet, 1 Tab 2019-08-05 00:00:00 No 1 [facility] Sucralfate 1 Gm Tablet, 1 Gm Oral Sucralfate 1 Gm Tablet, 1 Gm O ral 2019-08-05 00:00:00 No 1 Twice A Day [facility] Vitamin B Complex & Vit C No.4 (Super B Complex) 150 M g Tablet, 1 Tab Oral Vitamin B Complex & Vit C No.4 (Super B Complex) 150 Mg Tablet, 1 Tab Oral 2019-08-05 00:00:00 No 1 Daily [facility] Diclofenac , 75 Mg Oral Diclofenac , 75 Mg Oral 2018-11-12 00:00 :00 No 75 Twice A Day [facility] Hydrocodone Bit/Acetaminophen ([place] 10-325 Tablet) 1 Each Tablet, 1 Tab Oral Hydrocodone Bit/Acetaminophen ([place] 10-325 Tablet) 1 Each Tablet, 1 Tab Oral 2018-11-12 00:00:00 No 1 As Needed as needed for Pain [facility] Methotrexate Sodium (Methotrexate) 2.5 Mg Tab.ds.pk, 2 .5 Mg Oral Methotrexate Sodium (Methotrexate) 2.5 Mg Tab.ds.pk, 2.5 Mg Oral 2018-11-12 00:0 0:00 No 2.5 Weekly [facility] Glucosamine Sulfate 2KCL (Glucosamine) 1,000 Mg Tablet , 1 Tab Oral Glucosamine Sulfate 2KCL (Glucosamine) 1,000 Mg Tablet, 1 Tab Oral 6 00:00:00 No 1 Daily [facility] Ibuprofen 400 Mg Tablet, 800 Mg Oral Ibuprofen 400 Mg Tablet, 80 0 Mg Oral 2018-11-09 00:00:00 No 800 Three Times A Day [facility] Hydrocodone Bit/Acetaminophen ([place] 10-325 Tablet) 1 Each Tablet, 1 Tab Oral Hydrocodone Bit/Acetaminophen ([place] 10-325 Tablet) 1 Each Tablet, 1 Tab Oral 2018-03-23 00:00:00 No 1 Daily [facility] Valsartan (Diovan) 160 Mg Tab, 160 Mg Oral Valsartan ( Diovan) 160 Mg Tab, 160 Mg Oral 2018-03-23 00:00:00 No 160 Twice A Day [facility] Nabumetone 500 Mg Tab, 1000 Mg Oral Nabumetone 500 Mg Tab, 1000 Mg Oral 2018-02-17 00:00:00 No 1000 Twice A Day [facility] Enalapril Maleate (Vasotec) 10 Mg Tab, 10 Mg Oral Enal bigg Maleate (Vasotec) 10 Mg Tab, 10 Mg Oral 2017-07-15 00:00:00 No 10 Daily [facility] Ibuprofen , 800 Mg Oral Ibuprofen , 800 Mg Oral 2017-07-15 00:00 :00 No 800 As Needed [facility] Super Complex B , Oral Super Complex B , Oral 2017-07-15 00: 00:00 No Daily [facility] Procedures Procedure Date / Time Performed Performing Clinician Chary daley Total replacement of left knee joint 2019-08-09 00:00:00 ARLEEN PEPE [facility] TOTAL KNEE ARTHROPLASTY 2018-11-10 00:00:00 ARLEEN PEPE [facility] Encounters Start Date/Time End Date/Time [facility] ID Source 2019-08-09 20:39:00 2019-08-11 14:51:00 Discharged Inpatient (obs) 3 ARLEEN PEPE [facility] [id number] [facility] 2019-01-23 19:29:00 2019-01-23 20:09:00 Departed Emergency Room [facility] [id number] [facility] 2018-11-10 15:06:00 2018-11-12 15:57:00 Discharged Inpatient (obs) 3 ARLEEN PEPE [facility] [id number] [facility] 2018-08-21 08:04:00 2018-08-21 08:04:00 Registered Clinic 3 OTTO SCOTT [facility] [id number] [facility] 2018-03-25 06:12:00 2018-03-25 06:12:00 Registered Surgical Day Care [facility] [id number] [facility] 2018-02-17 06:30:00 2018-02-17 09:00:00 Departed Emergency Room 1 DAVID CAREY [facility] [id number] [facility] 2017-07-16 06:30:00 2017-07-16 06:30:00 Registered Surgical Day Car thuy PEPE [facility] [id number] [facility] 2017-07-01 12:14:00 2017-07-01 12:14:00 Registered Clinic MARCELINO PEPE [facility] [id number] [facility] Results Test Description Test Time Test Comments Results Result Comments Source SCR MAMM BILATERAL ALLEGRA CAD DIGITAL 2020-01-26 08:05:52 - SCR MAMM BILATERAL ALLEGRA CAD DIGITALBILATERAL DIGITAL SCREENING MAMMOGRAM 3D/2D WITH CAD: 01/15/2020CLINICAL: Asymptomatic. Digital breast tomosynthesis was performed in addition to routine CC and MLO views. Current mammographic images were evaluated by either a Tittat M-Vu or a Sunrun ImageChecker CAD (computer aided detection system). Comparison is made to exam dated 11/02/2015 mammogram - [facility]ammography. There are scattered fibroglandular tissues in both breasts. There are benign appearing calcifications in both breasts. No suspicious mass, architectural distortion, malignant type calcification, or lymph node abnormality detected. Breast architecture is stable compared to prior exams.IMPRESSION: BENIGNThere is no mammographic evidence of malignancy. Resume annual screening mammography in one year. Himanshu Zamora M.D. et/penrad:01/26/2020 08:05:52 Slip Box Changer: Lilliana Herrera FW, [facility]-FWletter sent: BIRADS 1-2 Normal Mammogram BI-RADS: 2 Be nign Differential Total Cells Counted 2019-08-11 07:32:00 Test Item Differential Total Cells Counted (test code = Differmena tial Total Cells Counted) 100 [facility] % (Manual)2019-08-11 07:32:00 * Test Item Value Reference Range Interpretation Comments Neutrophils % (Manual) (test code = 15387-7) 72 40-74 [facility] CenterLymphocytes % (Manual)2019-08-11 07:32:00 * Test Item Value Reference Range Interpretation Comments Lymphocytes % (Manual) (test code = 737-7) 15 19-48 L [facility] CenterMonocytes % (Manual)2019-08-11 07:32:00* Test Item Value Reference Range Interpretation Comments Monocytes % (Manual) (test code = 744-3) 12 3.4-9.0 H [facility] CenterEosinophils % (Manual)2019-08-11 07:32:00 * Test Item Value Reference Range Interpretation Comments Eosinophils % (Manual) (test code = 714-6) 1 0-7 [facility] CenterPlatelet Onwmzacm5396-59-43 07:32:00* Test Item Value Reference Range Interpretation Comments Platelet Estimate (test code = 19574-2) ADEQUATE [facility] CenterPlatelet Morphology Wnzztdm8637-17-55 07:32:00* Test Item Value Reference Range Interpretation Comments Platelet Morphology Comment (test code = 34215-6) NORMAL [facility] CenterRed Cell Morphology Emtsyag9170-03-95 07:32:00* Test Item Value Reference Range Interpretation Comments Red Cell Morphology Comment (test code = 6742-1) NORMAL [facility] Ggpyh7274-09-86 06:43:00* Test Item Value Reference Range Interpretation Comments Sodium Level (test code = 2951-2) 135 136-145 L [facility] CenterPotassium Qrsqa7000-70-52 06:43:00* Test Item Value Reference Range Interpretation Comments Potassium Level (test code = 2823-3) 3.9 3.5-5.1 [facility] CenterChloride Vnkbq4713-10-51 06:43:00* Test Item Value Reference Range Interpretation Comments Chloride Level (test code = 2075-0) 104 98-107 [facility] CenterCarbon Dioxide Sdqgt9072-60-09 06:43:00* Test Item Value Reference Range Interpretation Comments Carbon Dioxide Level (test code = 2028-9) 22 22-29 [facility] CenterAnion Qjd2922-89-68 06:43:00* Test Item Value Reference Range Interpretation Comments Anion Gap (test code = 57842-1) 12.9 8-16 [facility] CenterBlood Urea Khafzfqi8782-86-13 06:43:00* Test Item Value Reference Range Interpretation Comments Blood Urea Nitrogen (test code = 3094-0) 8 7-26 [facility] CenterCreatinine2020-02-05 06:43:00* Test Item Value Reference Range Interpretation Comments Creatinine (test code = 2160-0) 1.08 0.57-1.11 [facility] CenterBUN/Creatinine Cilwb7304-43-28 06:43:00* Test Item Value Reference Range Interpretation Comments BUN/Creatinine Ratio (test code = 3097-3) 7 6-25 [facility] CenterEstimat Glomerular Filtration Rate 2019-08-11 06:43:00* Test Item Value Reference Range Interpretation Comments Estimat Glomerular Filtration Rate (test code = 454819092) 50 >60 L Ranges were taken from the National Kidney Disease Education Program and the [facility] literature.Reference ranges:60 or greater: Xkpjvm27-73 ( for 3 consecutive months): Chronic kidney disease 15 or less: Kidney failureNacogdoches Medical CenterGlucose Ibtnq9178-20-81 06:43:00* Test Item Value Reference Range Interpretation Comments Glucose Level (test code = BND8938) 116 74-118 [facility] CenterCalcium Jfjrd2779-73-84 06:43:00* Test Item Value Reference Range Interpretation Comments Calcium Level (test code = 31906-6) 9.1 8.4-10.2 [facility] CenterWhite Blood Iogjf1508-92-84 06:34:00* Test Item Value Reference Range Interpretation Comments White Blood Count (test code = 6690-2) 10.67 4.8-10.8 [facility] CenterRed Blood Emgpn3734-36-98 06:34:00* Test Item Value Reference Range Interpretation Comments Red Blood Count (test code = 789-8) 2.92 3.6-5.1 L [facility] CenterHemoglobin2020-02-05 06:34:00* Test Item Value Reference Range Interpretation Comments Hemoglobin (test code = 63519-2) 9.2 12.0-16.0 L [facility] CenterHematocrit2020-02-05 06:34:00* Test Item Value Reference Range Interpretation Comments Hematocrit (test code = 4544-3) 26.9 34.2-44.1 L [facility] CenterMean Corpuscular Cthkhm2416-42-63 06:34:00* Test Item Value Reference Range Interpretation Comments Mean Corpuscular Volume (test code = 787-2) 92.1 81-99 [facility] CenterMean Corpuscular Cewkeovczo8422-70-90 06:34:00* Test Item Value Reference Range Interpretation Comments Mean Corpuscular Hemoglobin (test code = 785-6) 31.5 28-32 [facility] CenterMean Corpuscular Hemoglobin Concent 2019-08-11 06:34:00* Test Item Value Reference Range Interpretation Comments Mean Corpuscular Hemoglobin Concent (test code = 786-4) 34.2 31-35 [facility] CenterRed Cell Distribution Jurzs7304-75-81 06:34:00* Test Item Value Reference Range Interpretation Comments Red Cell Distribution Width (test code = 86233-8) 13.9 11.7 -14.4 [facility] CenterPlatelet Odauu8030-35-73 06:34:00* Test Item Value Reference Range Interpretation Comments Platelet Count (test code = 777-3) 195 140-360 [facility] CenterNeutrophils (%) (Auto)2019-08-11 06:34:00 * Test Item Value Reference Range Interpretation Comments Neutrophils (%) (Auto) (test code = 41588-0) 70.5 38.7-80.0 [facility] CenterLymphocytes (%) (Auto)2019-08-11 06:34:00 * Test Item Value Reference Range Interpretation Comments Lymphocytes (%) (Auto) (test code = 736-9) 12.4 18.0-39.1 L [facility] CenterMonocytes (%) (Auto)2019-08-11 06:34:00* Test Item Value Reference Range Interpretation Comments Monocytes (%) (Auto) (test code = 5905-5) 15.7 4.4-11.3 H [facility] CenterEosinophils (%) (Auto)2019-08-11 06:34:00 * Test Item Value Reference Range Interpretation Comments Eosinophils (%) (Auto) (test code = 713-8) 0.5 0.0-6.0 [facility] CenterBasophils (%) (Auto)2019-08-11 06:34:00* Test Item Value Reference Range Interpretation Comments Basophils (%) (Auto) (test code = 706-2) 0.3 0.0-1.0 [facility] CenterIM GRANULOCYTES %2019-08-11 06:34:00* Test Item Value Reference Range Interpretation Comments IM GRANULOCYTES % (test code = IM GRANULOCYTES %) 0.6 0.0- 1.0 [facility] CenterNeutrophils # (Auto)2019-08-11 06:34:00* Test Item Value Reference Range Interpretation Comments Neutrophils # (Auto) (test code = 751-8) 7.5 2.1-6.9 H [facility] CenterLymphocytes # (Auto)2019-08-11 06:34:00* Test Item Value Reference Range Interpretation Comments Lymphocytes # (Auto) (test code = 42471-3) 1.3 1.0-3.2 [facility] CenterMonocytes # (Auto)2019-08-11 06:34:00* Test Item Value Reference Range Interpretation Comments Monocytes # (Auto) (test code = 742-7) 1.7 0.2-0.8 H [facility] CenterEosinophils # (Auto)2019-08-11 06:34:00* Test Item Value Reference Range Interpretation Comments Eosinophils # (Auto) (test code = 711-2) 0.1 0.0-0.4 [facility] CenterBasophils # (Auto)2019-08-11 06:34:00* Test Item Value Reference Range Interpretation Comments Basophils # (Auto) (test code = 704-7) 0.0 0.0-0.1 [facility] CenterAbsolute Immature Granulocyte (auto 2019-08-11 06:34:00* Test Item Value Reference Range Interpretation Comments Absolute Immature Granulocyte (auto (luisito t code = Absolute Immature Granulocyte (auto) 0.06 0-0.1 [facility] CenterMagnesium Pohaq2004-19-43 06:46:00* Test Item Value Reference Range Interpretation Comments Magnesium Level (test code = 27555-2) 1.9 1.3-2.1 [facility] CenterKNEE LEFT 1-2 TFJDM4558-58-95 17:17:00 [place] [address] Patient Name: NIVIA IGNACIO MR #: [id number] : 1950 Age/Sex: 69/F Req #: [id number] Adm Physician: Ordered by: ARLEEN PEPE MD Report #: [id number] Location: OR Room/Bed: Procedure: [id number] DX/ KNEE LEFT 1-2 VIEWS Exam Date: 08/09/19 Exam Time: 1 637 REPORT STATUS: Signed EXAMIN ATION: KNEE LEFT 1-2 VIEWS INDICATION: Postoperative COMPARISON: None FINDINGS: Portable AP and lateral images of the left knee de monstrate immediate postoperative findings of left total knee replacement. Ali gnment appears anatomic. No unexpected fracture. Postoperative subcutaneous so ft tissue emphysema. Small joint effusion. Surgical skin radha in place. IMPRESSION: Anatomic alignment status post left total knee replacement. Signed by: Angel Stafford MD on 08/09/2019 5:18 PM Dictated By: ANGEL STAFFORD MD 17 Transcribed By: SIGKAT SINGH on 08/09/191717 COPY TO: ARLEEN PEPE MD Urine Color 2019-08-05 15:52:00* Test Item Value Reference Range Interpretation Comments Urine Color (test code = 5778-6) YELLOW YELLOW [facility] CenterUrine Szunnpl1261-20-43 15:52:00* Test Item Value Reference Range Interpretation Comments Urine Clarity (test code = 63962-5) SL CLOUDY CLEAR [facility] CenterUrine Specific Imrhjct8862-46-97 15:52:00 * Test Item Value Reference Range Interpretation Comments Urine Specific [place] (test code = 5811-5) 1.010 1.010-1.02 5 [facility] CenterUrine oY9557-18-20 15:52:00* Test Item Value Reference Range Interpretation Comments Urine pH (test code = 00550-8) 5.5 5-7 [facility] CenterUrine Leukocyte Joyuixvk7170-69-72 15:52:00* Test Item Value Reference Range Interpretation Comments Urine Leukocyte Esterase (test code = 5799-2) TRACE NEGATIVE H [facility] CenterUrine Wogqkmr6045-50-91 15:52:00* Test Item Value Reference Range Interpretation Comments Urine Nitrite (test code = 27605-5) NEGATIVE NEGATIVE [facility] CenterUrine Urckfke5691-32-54 15:52:00* Test Item Value Reference Range Interpretation Comments Urine Protein (test code = 5804-0) NEGATIVE NEGATIVE [facility] CenterUrine Glucose (UA)2019-08-05 15:52:00* Test Item Value Reference Range Interpretation Comments Urine Glucose (UA) (test code = 2349-9) NEGATIVE NEGATIVE [facility] CenterUrine Keimfez8112-44-89 15:52:00* Test Item Value Reference Range Interpretation Comments Urine Ketones (test code = 28615-8) NEGATIVE NEGATIVE [facility] Jtwhjvexpcfy2171-54-56 15:52:00* Test Item Value Reference Range Interpretation Comments Urine Urobilinogen (test code = 47083-1) 0.2 0.2-1 [facility] CenterUrine Hwvqlqbuz0890-83-38 15:52:00* Test Item Value Reference Range Interpretation Comments Urine Bilirubin (test code = 1978-6) NEGATIVE NEGATIVE [facility] CenterUrine Gdmvq1353-04-83 15:52:00* Test Item Value Reference Range Interpretation Comments Urine Blood (test code = 09642-4) NEGATIVE NEGATIVE [facility] Vxcob4345-48-46 07:23:00* Test Item Value Reference Range Interpretation Comments Sodium Level (test code = 2951-2) 134 136-145 L [facility] CenterPotassium Jxnnf4710-22-59 07:23:00* Test Item Value Reference Range Interpretation Comments Potassium Level (test code = 2823-3) 3.8 3.5-5.1 [facility] CenterChloride Tsuhx7196-60-37 07:23:00* Test Item Value Reference Range Interpretation Comments Chloride Level (test code = 2075-0) 101 98-107 [facility] CenterCarbon Dioxide Rzbdu4388-31-29 07:23:00* Test Item Value Reference Range Interpretation Comments Carbon Dioxide Level (test code = 2028-9) 26 - [facility] CenterAnion Wkp5375-29-16 07:23:00* Test Item Value Reference Range Interpretation Comments Anion Gap (test code = 25822-5) 10.8 8-16 [facility] CenterBlood Urea Ztexivfl9858-29-77 07:23:00* Test Item Value Reference Range Interpretation Comments Blood Urea Nitrogen (test code = 3094-0) 9 7-26 [facility] CenterCreatinine2019-05-09 07:23:00* Test Item Value Reference Range Interpretation Comments Creatinine (test code = 2160-0) 0.79 0.57-1.11 [facility] CenterBUN/Creatinine Mzeim8508-53-30 07:23:00* Test Item Value Reference Range Interpretation Comments BUN/Creatinine Ratio (test code = 3097-3) 11 12-29 [facility] CenterEstimat Glomerular Filtration Rate 2018-11-12 07:23:00* Test Item Value Reference Range Interpretation Comments Estimat Glomerular Filtration Rate (test code = 004213205) > 60 >60 Ranges were taken from the National Kidney Disease Education Program and the [facility] literature.Reference ranges:60 or greater: Viiiek07-69 ( for 3 consecutive months): Chronic kidney disease 15 or less: Kidney failureNacogdoches Medical CenterGlucose Wkspb7709-70-03 07:23:00* Test Item Value Reference Range Interpretation Comments Glucose Level (test code = AOP4129) 109 74-118 [facility] CenterCalcium Rpviq0501-26-70 07:23:00* Test Item Value Reference Range Interpretation Comments Calcium Level (test code = 89383-3) 9.7 8.4-10.2 [facility]odium Lbqoj5437-93-34 07:23:00* Test Item Value Reference Range Interpretation Comments Sodium Level (test code = 2951-2) 134 136-145 L [facility] CenterPotassium Fndgr4953-69-57 07:23:00* Test Item Value Reference Range Interpretation Comments Potassium Level (test code = 2823-3) 3.8 3.5-5.1 [facility] CenterChloride Hysps3185-78-74 07:23:00* Test Item Value Reference Range Interpretation Comments Chloride Level (test code = 2075-0) 101 98-107 [facility] CenterCarbon Dioxide Gkznt2017-06-12 07:23:00* Test Item Value Reference Range Interpretation Comments Carbon Dioxide Level (test code = 2028-9) 26 22-29 [facility] CenterAnion Oje6971-00-70 07:23:00* Test Item Value Reference Range Interpretation Comments Anion Gap (test code = 19182-1) 10.8 8-16 [facility] CenterBlood Urea Iemfrosh1944-75-78 07:23:00* Test Item Value Reference Range Interpretation Comments Blood Urea Nitrogen (test code = 3094-0) 9 7-26 [facility] CenterCreatinine2019-05-09 07:23:00* Test Item Value Reference Range Interpretation Comments Creatinine (test code = 2160-0) 0.79 0.57-1.11 [facility] CenterBUN/Creatinine Uwhwt6545-11-08 07:23:00* Test Item Value Reference Range Interpretation Comments BUN/Creatinine Ratio (test code = 3097-3) 11 6-25 [facility] CenterEstimat Glomerular Filtration Rate 2018-11-12 07:23:00* Test Item Value Reference Range Interpretation Comments Estimat Glomerular Filtration Rate (test code = 589362409) > 60 >60 Ranges were taken from the National Kidney Disease Education Program and the [facility] literature.Reference ranges:60 or greater: Bglbku82-10 ( for 3 consecutive months): Chronic kidney disease 15 or less: Kidney failureNacogdoches Medical CenterGlucose Equnw3348-68-74 07:23:00* Test Item Value Reference Range Interpretation Comments Glucose Level (test code = QQW7279) 109 74-118 [facility] CenterCalcium Yoieu6135-20-41 07:23:00* Test Item Value Reference Range Interpretation Comments Calcium Level (test code = 48457-6) 9.7 8.4-10.2 [facility] CenterWhite Blood Zfiol0986-25-36 07:04:00* Test Item Value Reference Range Interpretation Comments White Blood Count (test code = 6690-2) 10.75 4.8-10.8 [facility] CenterRed Blood Rvgoj8336-51-49 07:04:00* Test Item Value Reference Range Interpretation Comments Red Blood Count (test code = 789-8) 2.81 3.6-5.1 L [facility] CenterHemoglobin2019-05-09 07:04:00* Test Item Value Reference Range Interpretation Comments Hemoglobin (test code = 53428-5) 8.7 12.0-16.0 L [facility] CenterHematocrit2019-05-09 07:04:00* Test Item Value Reference Range Interpretation Comments Hematocrit (test code = 4544-3) 25.7 34.2-44.1 L [facility] CenterMean Corpuscular Lmlqlv0033-65-09 07:04:00* Test Item Value Reference Range Interpretation Comments Mean Corpuscular Volume (test code = 787-2) 91.5 81-99 [facility] CenterMean Corpuscular Mldhvnveiw0598-70-84 07:04:00* Test Item Value Reference Range Interpretation Comments Mean Corpuscular Hemoglobin (test code = 785-6) 31.0 28-32 [facility] CenterMean Corpuscular Hemoglobin Concent 2018-11-12 07:04:00* Test Item Value Reference Range Interpretation Comments Mean Corpuscular Hemoglobin Concent (test code = 786-4) 33.9 31-35 [facility] CenterRed Cell Distribution Rnoec1512-84-53 07:04:00* Test Item Value Reference Range Interpretation Comments Red Cell Distribution Width (test code = 69418-3) 12.7 11.7 -14.4 [facility] CenterPlatelet Gynzk0045-20-07 07:04:00* Test Item Value Reference Range Interpretation Comments Platelet Count (test code = 777-3) 281 140-360 [facility] CenterNeutrophils (%) (Auto)2018-11-12 07:04:00 * Test Item Value Reference Range Interpretation Comments Neutrophils (%) (Auto) (test code = 06456-6) 73.3 38.7-80.0 [facility] CenterLymphocytes (%) (Auto)2018-11-12 07:04:00 * Test Item Value Reference Range Interpretation Comments Lymphocytes (%) (Auto) (test code = 736-9) 14.4 18.0-39.1 L [facility] CenterMonocytes (%) (Auto)2018-11-12 07:04:00* Test Item Value Reference Range Interpretation Comments Monocytes (%) (Auto) (test code = 5905-5) 11.2 4.4-11.3 [facility] CenterEosinophils (%) (Auto)2018-11-12 07:04:00 * Test Item Value Reference Range Interpretation Comments Eosinophils (%) (Auto) (test code = 713-8) 0.2 0.0-6.0 [facility] CenterBasophils (%) (Auto)2018-11-12 07:04:00* Test Item Value Reference Range Interpretation Comments Basophils (%) (Auto) (test code = 706-2) 0.2 0.0-1.0 [facility] CenterIM GRANULOCYTES %2018-11-12 07:04:00* Test Item Value Reference Range Interpretation Comments IM GRANULOCYTES % (test code = IM GRANULOCYTES %) 0.7 0.0- 1.0 [facility] CenterNeutrophils # (Auto)2018-11-12 07:04:00* Test Item Value Reference Range Interpretation Comments Neutrophils # (Auto) (test code = 751-8) 7.9 2.1-6.9 H [facility] CenterLymphocytes # (Auto)2018-11-12 07:04:00* Test Item Value Reference Range Interpretation Comments Lymphocytes # (Auto) (test code = 77401-1) 1.6 1.0-3.2 [facility] CenterMonocytes # (Auto)2018-11-12 07:04:00* Test Item Value Reference Range Interpretation Comments Monocytes # (Auto) (test code = 742-7) 1.2 0.2-0.8 H [facility] CenterEosinophils # (Auto)2018-11-12 07:04:00* Test Item Value Reference Range Interpretation Comments Eosinophils # (Auto) (test code = 711-2) 0.0 0.0-0.4 [facility] CenterBasophils # (Auto)2018-11-12 07:04:00* Test Item Value Reference Range Interpretation Comments Basophils # (Auto) (test code = 704-7) 0.0 0.0-0.1 [facility] CenterAbsolute Immature Granulocyte (auto 2018-11-12 07:04:00* Test Item Value Reference Range Interpretation Comments Absolute Immature Granulocyte (auto (luisito t code = Absolute Immature Granulocyte (auto) 0.08 0-0.1 [facility] CenterWhite Blood Kgnsl4495-72-56 07:04:00* Test Item Value Reference Range Interpretation Comments White Blood Count (test code = 6690-2) 10.75 4.8-10.8 [facility] CenterRed Blood Ffwrt3093-33-13 07:04:00* Test Item Value Reference Range Interpretation Comments Red Blood Count (test code = 789-8) 2.81 3.6-5.1 L [facility] CenterHemoglobin2019-05-09 07:04:00* Test Item Value Reference Range Interpretation Comments Hemoglobin (test code = 62346-5) 8.7 12.0-16.0 L [facility] CenterHematocrit2019-05-09 07:04:00* Test Item Value Reference Range Interpretation Comments Hematocrit (test code = 4544-3) 25.7 34.2-44.1 L [facility] CenterMean Corpuscular Hxtqxj3663-83-93 07:04:00* Test Item Value Reference Range Interpretation Comments Mean Corpuscular Volume (test code = 787-2) 91.5 81-99 [facility] CenterMean Corpuscular Fztkgdxxsi2294-14-60 07:04:00* Test Item Value Reference Range Interpretation Comments Mean Corpuscular Hemoglobin (test code = 785-6) 31.0 28-32 [facility] CenterMean Corpuscular Hemoglobin Concent 2018-11-12 07:04:00* Test Item Value Reference Range Interpretation Comments Mean Corpuscular Hemoglobin Concent (test code = 786-4) 33.9 31-35 [facility] CenterRed Cell Distribution Gekja0532-57-08 07:04:00* Test Item Value Reference Range Interpretation Comments Red Cell Distribution Width (test code = 46941-4) 12.7 11.7 -14.4 [facility] CenterPlatelet Izkgn5809-87-55 07:04:00* Test Item Value Reference Range Interpretation Comments Platelet Count (test code = 777-3) 281 140-360 [facility] CenterNeutrophils (%) (Auto)2018-11-12 07:04:00 * Test Item Value Reference Range Interpretation Comments Neutrophils (%) (Auto) (test code = 93807-4) 73.3 38.7-80.0 [facility] CenterLymphocytes (%) (Auto)2018-11-12 07:04:00 * Test Item Value Reference Range Interpretation Comments Lymphocytes (%) (Auto) (test code = 736-9) 14.4 18.0-39.1 L [facility] CenterMonocytes (%) (Auto)2018-11-12 07:04:00* Test Item Value Reference Range Interpretation Comments Monocytes (%) (Auto) (test code = 5905-5) 11.2 4.4-11.3 [facility] CenterEosinophils (%) (Auto)2018-11-12 07:04:00 * Test Item Value Reference Range Interpretation Comments Eosinophils (%) (Auto) (test code = 713-8) 0.2 0.0-6.0 [facility] CenterBasophils (%) (Auto)2018-11-12 07:04:00* Test Item Value Reference Range Interpretation Comments Basophils (%) (Auto) (test code = 706-2) 0.2 0.0-1.0 [facility] CenterIM GRANULOCYTES %2018-11-12 07:04:00* Test Item Value Reference Range Interpretation Comments IM GRANULOCYTES % (test code = IM GRANULOCYTES %) 0.7 0.0- 1.0 [facility] CenterNeutrophils # (Auto)2018-11-12 07:04:00* Test Item Value Reference Range Interpretation Comments Neutrophils # (Auto) (test code = 751-8) 7.9 2.1-6.9 H [facility] CenterLymphocytes # (Auto)2018-11-12 07:04:00* Test Item Value Reference Range Interpretation Comments Lymphocytes # (Auto) (test code = 09901-7) 1.6 1.0-3.2 [facility] CenterMonocytes # (Auto)2018-11-12 07:04:00* Test Item Value Reference Range Interpretation Comments Monocytes # (Auto) (test code = 742-7) 1.2 0.2-0.8 H [facility] CenterEosinophils # (Auto)2018-11-12 07:04:00* Test Item Value Reference Range Interpretation Comments Eosinophils # (Auto) (test code = 711-2) 0.0 0.0-0.4 [facility] CenterBasophils # (Auto)2018-11-12 07:04:00* Test Item Value Reference Range Interpretation Comments Basophils # (Auto) (test code = 704-7) 0.0 0.0-0.1 [facility] CenterAbsolute Immature Granulocyte (auto 2018-11-12 07:04:00* Test Item Value Reference Range Interpretation Comments Absolute Immature Granulocyte (auto (luisito t code = Absolute Immature Granulocyte (auto) 0.08 0-0.1 [facility] CenterTotal Obtiltepd5270-40-84 07:34:00* Test Item Value Reference Range Interpretation Comments Total Bilirubin (test code = 1975-2) 0.1 0.2-1.2 L [facility] CenterAspartate Amino Transf (AST/SGOT) 2018-11-11 07:34:00* Test Item Value Reference Range Interpretation Comments Aspartate Amino Transf (AST/SGOT) (test code = Aspartate Amino Transf (AST/SGOT)) 21 5-34 [facility] CenterAlanine Aminotransferase (ALT/SGPT) 2018-11-11 07:34:00* Test Item Value Reference Range Interpretation Comments Alanine Aminotransferase (ALT/SGPT) (test code = 1742-6) 17 0-55 [facility] CenterTotal Txpnvbr8254-99-28 07:34:00* Test Item Value Reference Range Interpretation Comments Total Protein (test code = 2885-2) 6.0 6.5-8.1 L [facility] CenterAlbumin2019-05-08 07:34:00* Test Item Value Reference Range Interpretation Comments Albumin (test code = 1751-7) 3.0 3.5-5.0 L [facility] CenterGlobulin2019-05-08 07:34:00* Test Item Value Reference Range Interpretation Comments Globulin (test code = 11973-2) 3.0 2.3-3.5 [facility] CenterAlbumin/Globulin Tozsu4484-47-06 07:34:00 * Test Item Value Reference Range Interpretation Comments Albumin/Globulin Ratio (test code = 1759-0) 1.0 0.8-2.0 [facility] CenterAlkaline Qfynfdevyft2424-15-79 07:34:00* Test Item Value Reference Range Interpretation Comments Alkaline Phosphatase (test code = 6768-6) 77 40-150 [facility] CenterTotal Qwegafeme7170-16-96 07:34:00* Test Item Value Reference Range Interpretation Comments Total Bilirubin (test code = 1975-2) 0.1 0.2-1.2 L [facility] CenterAspartate Amino Transf (AST/SGOT) 2018-11-11 07:34:00* Test Item Value Reference Range Interpretation Comments Aspartate Amino Transf (AST/SGOT) (test code = Aspartate Amino Transf (AST/SGOT)) 534 [facility] CenterAlanine Aminotransferase (ALT/SGPT) 2018-11-11 07:34:00* Test Item Value Reference Range Interpretation Comments Alanine Aminotransferase (ALT/SGPT) (test code = 1742-6) 17 0-55 [facility] CenterTotal Mqgkmwn7134-57-29 07:34:00* Test Item Value Reference Range Interpretation Comments Total Protein (test code = 2885-2) 6.0 6.5-8.1 L [facility] CenterAlbumin2019-05-08 07:34:00* Test Item Value Reference Range Interpretation Comments Albumin (test code = 1751-7) 3.0 3.5-5.0 L [facility] CenterGlobulin2019-05-08 07:34:00* Test Item Value Reference Range Interpretation Comments Globulin (test code = 42896-5) 3.0 2.3-3.5 [facility] CenterAlbumin/Globulin Lreji7962-43-41 07:34:00 * Test Item Value Reference Range Interpretation Comments Albumin/Globulin Ratio (test code = 1759-0) 1.0 0.8-2.0 [facility] CenterAlkaline Cgnupotxbkb3292-60-56 07:34:00* Test Item Value Reference Range Interpretation Comments Alkaline Phosphatase (test code = 6768-6) 77 40-150 [facility] CenterTotal Dunpretxn5325-40-89 07:34:00* Test Item Value Reference Range Interpretation Comments Total Bilirubin (test code = 1975-2) 0.1 0.2-1.2 L [facility] CenterAspartate Amino Transf (AST/SGOT) 2018-11-11 07:34:00* Test Item Value Reference Range Interpretation Comments Aspartate Amino Transf (AST/SGOT) (test code = Aspartate Amino Transf (AST/SGOT)) 21 5-34 [facility] CenterAlanine Aminotransferase (ALT/SGPT) 2018-11-11 07:34:00* Test Item Value Reference Range Interpretation Comments Alanine Aminotransferase (ALT/SGPT) (test code = 1742-6) 17 0-55 [facility] Cwibyqc0195-71-77 07:34:00* Test Item Value Reference Range Interpretation Comments Total Protein (test code = 2885-2) 6.0 6.5-8.1 L [facility] CenterAlbumin2019-05-08 07:34:00* Test Item Value Reference Range Interpretation Comments Albumin (test code = 1751-7) 3.0 3.5-5.0 L [facility] CenterGlobulin2019-05-08 07:34:00* Test Item Value Reference Range Interpretation Comments Globulin (test code = 29258-6) 3.0 2.3-3.5 [facility] CenterAlbumin/Globulin Zdgsy4392-78-18 07:34:00 * Test Item Value Reference Range Interpretation Comments Albumin/Globulin Ratio (test code = 1759-0) 1.0 0.8-2.0 [facility] CenterAlkaline Nongwvibkdw9872-84-95 07:34:00* Test Item Value Reference Range Interpretation Comments Alkaline Phosphatase (test code = 6768-6) 77 40-150 [facility] CenterKNEE RIGHT 1-2 IXSCG2977-99-48 16:22:00 [facility] [address] [place] [address] Patient Name: NIVIA IGNACIO MR #: [id number] : 1950 Age/Sex: 68/F Req #: [id number] Adm Physician: ARLEEN PEPE MD Ordered by: ARLEEN PEPE MD Report #: [id number] Location: MED/SURG Room/Bed: [facility] Procedure: [id number] D X/KNEE RIGHT 1-2 VIEWS Exam Date: 11/10/18 Exam Time : 1520 REPORT STATUS: Signed Rig ht knee radiographs-2 views History: Postoperative Findings: Status po st right total knee arthroplasty and patellar resurfacing with prosthetic comp onents in anatomic alignment. Hardware appears intact. Overlying subcutaneous emphysema and surgical skin radha are present. No evidence of acute fracture . IMPRESSION: Status post right total knee replacement in anatomic align ment. Signed by: Dr. Vic Hurd MD on 11/10/2018 4:24 PM Dictated By: VIC HURD MD 23 Transc ribed By: LINDA on 11/10/181623 COPY TO: ARLEEN PEPE MD Prothrombin Ciqm5589-40-28 11:03:00* Test Item Value Reference Range Interpretation Comments Prothrombin Time (test code = 5902-2) 12.6 11.9-14.5 [facility] CenterProthromb Time International Ratio 2018-11-10 11:03:00* Test Item Value Reference Range Interpretation Comments Prothromb Time International Ratio (test code = 6301-6) 0.90 Oral Anticoagulant Therapy INR Values:1. Low Intensity Therapy 1.5 - 2.02 . Moderate Intensity Therapy 2.0 - 3.03. High Intensity Therapy(1) 2.5 - 3. 54. High Intensity Therapy(2) 3.0 - 4.05. Panic Value INR > 5.0 [facility] CenterActivated Partial Thromboplast Time 2018-11-10 11:03:00* Test Item Value Reference Range Interpretation Comments Activated Partial Thromboplast Time (test code = 17903-8) 31.4 23.8-35.5 [facility] CenterProthrombin Gbeo6301-42-90 11:03:00* Test Item Value Reference Range Interpretation Comments Prothrombin Time (test code = 5902-2) 12.6 11.9-14.5 [facility] CenterProthromb Time International Ratio 2018-11-10 11:03:00* Test Item Value Reference Range Interpretation Comments Prothromb Time International Ratio (test code = 6301-6) 0.90 Oral Anticoagulant Therapy INR Values:1. Low Intensity Therapy 1.5 - 2.02 . Moderate Intensity Therapy 2.0 - 3.03. High Intensity Therapy(1) 2.5 - 3. 54. High Intensity Therapy(2) 3.0 - 4.05. Panic Value INR > 5.0 [facility] CenterActivated Partial Thromboplast Time 2018-11-10 11:03:00* Test Item Value Reference Range Interpretation Comments Activated Partial Thromboplast Time (test code = 56765-1) 31.4 23.8-35.5 [facility] CenterProthrombin Dokz1140-44-13 11:03:00* Test Item Value Reference Range Interpretation Comments Prothrombin Time (test code = 5902-2) 12.6 11.9-14.5 [facility] CenterProthromb Time International Ratio 2018-11-10 11:03:00* Test Item Value Reference Range Interpretation Comments Prothromb Time International Ratio (test code = 6301-6) 0.90 Oral Anticoagulant Therapy INR Values:1. Low Intensity Therapy 1.5 - 2.02 . Moderate Intensity Therapy 2.0 - 3.03. High Intensity Therapy(1) 2.5 - 3. 54. High Intensity Therapy(2) 3.0 - 4.05. Panic Value INR > 5.0 [facility] CenterActivated Partial Thromboplast Time 2018-11-10 11:03:00* Test Item Value Reference Range Interpretation Comments Activated Partial Thromboplast Time (test code = 79336-2) 31.4 23.8-35.5 [facility] CenterMAMMOGRAPHY DIGITAL SCR VXSHD9681-03-16 09:15:00 [place] [address] Patient Name: NIVIA IGNACIO MR #: [id number] : 1950 Age/Sex: 68/F Req #: [id number] Adm Physician: Ordered by: OTTO SCOTT MD Report #: [id number] Location: [facility] Room/Bed: Procedure: [id number] MG/M AMMOGRAPHY DIGITAL SCR BILAT Exam Date: 08/21/18 Sandra rai Time: 829 REPORT STATUS: Signed #[id number] - MGSCRBIL #BILATERAL DIGITAL SCREENING MAMMOGRAM WITH CA CLINICAL: Routine screening. Comparison is made to exams d ated: 11/30/2014 mammogram and 10/16/2013 mammogram - [facility]. Current study contains 5 films. The tissue of both breasts is p redominantly fatty. Current study was also evaluated with a Computer Aided D etection (CAD) system. There are benign vascular calcifications in both sidney sts. There also are benign intramammary nodes in both breasts. No signifi cant masses, calcifications, or other findings are seen in either breast. Th ere has been no significant interval change. IMPRESSION: BENIGN There is no mammographic evidence of malignancy. A 1 year screening mammogram is recomme nded. The patient will be notified by letter of the results. Kevin liu/temitope:09/04/2018 11:52:22 Imaging Technolo gist: Mine Murphy RT(R)(M), [facility] letter sent: Compared to Prior B9 Mammogram BI-RADS: 2 Benign Dictated By: KEVIN AMARAL DO 1152 Transcribe d By: TEMITOPE on 09/04/18 1152 COPY TO: OTTO SCOTT MD SHOULDER RIGHT WXWMDLHV8959-33-37 07:52:00 [place] [address] Patient Name: NIVIA IGNACIO MR #: [id number] : 1950 Age/Sex: 67/F Req #: [id number] Adm Physician: Ordered by: RAVINDRA BRAVO MD Report #: [id number] Location: ER Room/Bed: Procedure: [id number] DX/SHOULDER RIGHT COMPLETE Exam Date: 02/17/18 Exam Time: [address] ATUS: Signed PROCEDURE: X-RAY RIGHT SHOULDER, COMPLETE COMPARISON: Chest radiograph 07/14/17. INDICATIONS: SHOULDER PAIN, CHRONIC, NO TRAUMA FINDINGS: There are no fractures, dislocations, lytic or blastic lesi ons. The bones are well-mineralized. Mild joint space narrowing in the right glenohumeral and acromioclavicular joints. CONCLUSION: Mild right glenohumeral and AC joint degenerative changes. No acute osseous abnormality. Dictated by: VIC HURD M.D. on 02/17/2018 at 7:52 Electronically approved by: VIC HURD M.D. on 02/17/2018 at 7:52 Dictated By: VIC HURD MD 075 Trans cribed By: ROBERT on 02/17/18 075 COPY TO: RAVINDRA BRAVO MD White Blood Zcdzn1399-61-14 11:26:00* Test Item Value Reference Range Interpretation Comments White Blood Count (test code = 6690-2) 8.55 4.8-10.8 [facility] CenterRed Blood Ixzox0222-46-97 11:26:00* Test Item Value Reference Range Interpretation Comments Red Blood Count (test code = 789-8) 4.53 3.6-5.1 [facility] CenterHemoglobin2018-01-08 11:26:00* Test Item Value Reference Range Interpretation Comments Hemoglobin (test code = 91051-7) 13.9 12.0-16.0 [facility] CenterHematocrit2018-01-08 11:26:00* Test Item Value Reference Range Interpretation Comments Hematocrit (test code = 4544-3) 42.1 34.2-44.1 [facility] CenterMean Corpuscular Uluzna3257-60-98 11:26:00* Test Item Value Reference Range Interpretation Comments Mean Corpuscular Volume (test code = 787-2) 92.9 81-99 [facility] CenterMean Corpuscular Fkhlvnwaxz7325-26-22 11:26:00* Test Item Value Reference Range Interpretation Comments Mean Corpuscular Hemoglobin (test code = 785-6) 30.7 28-32 [facility] CenterMean Corpuscular Hemoglobin Concent 2017-07-14 11:26:00* Test Item Value Reference Range Interpretation Comments Mean Corpuscular Hemoglobin Concent (test code = 786-4) 33.0 31-35 [facility] CenterRed Cell Distribution Dkbir7237-16-46 11:26:00* Test Item Value Reference Range Interpretation Comments Red Cell Distribution Width (test code = 84009-7) 13.0 11.7 -14.4 [facility] CenterPlatelet Maqea5995-30-14 11:26:00* Test Item Value Reference Range Interpretation Comments Platelet Count (test code = 777-3) 248 140-360 [facility] CenterNeutrophils (%) (Auto)2017-07-14 11:26:00 * Test Item Value Reference Range Interpretation Comments Neutrophils (%) (Auto) (test code = 29285-5) 61.8 38.7-80.0 [facility] CenterLymphocytes (%) (Auto)2017-07-14 11:26:00 * Test Item Value Reference Range Interpretation Comments Lymphocytes (%) (Auto) (test code = 736-9) 22.0 18.0-39.1 [facility] CenterMonocytes (%) (Auto)2017-07-14 11:26:00* Test Item Value Reference Range Interpretation Comments Monocytes (%) (Auto) (test code = 5905-5) 11.5 4.4-11.3 H [facility] CenterEosinophils (%) (Auto)2017-07-14 11:26:00 * Test Item Value Reference Range Interpretation Comments Eosinophils (%) (Auto) (test code = 713-8) 3.5 0.0-6.0 [facility] CenterBasophils (%) (Auto)2017-07-14 11:26:00* Test Item Value Reference Range Interpretation Comments Basophils (%) (Auto) (test code = 706-2) 0.6 0.0-1.0 [facility] CenterIM GRANULOCYTES %2017-07-14 11:26:00* Test Item Value Reference Range Interpretation Comments IM GRANULOCYTES % (test code = IM GRANULOCYTES %) 0.6 0.0- 1.0 [facility] CenterNeutrophils # (Auto)2017-07-14 11:26:00* Test Item Value Reference Range Interpretation Comments Neutrophils # (Auto) (test code = 751-8) 5.3 2.1-6.9 [facility] CenterLymphocytes # (Auto)2017-07-14 11:26:00* Test Item Value Reference Range Interpretation Comments Lymphocytes # (Auto) (test code = 37926-8) 1.9 1.0-3.2 [facility] CenterMonocytes # (Auto)2017-07-14 11:26:00* Test Item Value Reference Range Interpretation Comments Monocytes # (Auto) (test code = 742-7) 1.0 0.2-0.8 H [facility] CenterEosinophils # (Auto)2017-07-14 11:26:00* Test Item Value Reference Range Interpretation Comments Eosinophils # (Auto) (test code = 711-2) 0.3 0.0-0.4 [facility] CenterBasophils # (Auto)2017-07-14 11:26:00* Test Item Value Reference Range Interpretation Comments Basophils # (Auto) (test code = 704-7) 0.1 0.0-0.1 [facility] CenterAbsolute Immature Granulocyte (auto 2017-07-14 11:26:00* Test Item Value Reference Range Interpretation Comments Absolute Immature Granulocyte (auto (luisito t code = Absolute Immature Granulocyte (auto) 0.05 0-0.1 [facility] CenterCHEST 2 VIEWS [place] [address] Patient Name: NIVIA IGNACIO MR #: [id number] : 1950 Age/Sex: 67/F Req #: [id number] Adm Physician: Ordered by: ARLEEN PEPE MD Report #: [id number] Location: OR Room/Bed: Procedure: [id number] DX/CHEST 2 VIEWS Exam Date: 0 07/14/17 Exam Time: 1125 REPORT STATUS: Signed PROCEDURE: Frontal and lateral views of the chest. COMPARISON: 09/22/13 INDICATIONS: PRE OP FINDINGS: Lines/tubes: None. Ashly gs: The lungs are well inflated and clear. There is no evidence of pneumonia or pulmonary edema. Unchanged right lower lung field nodular density, likely a calcified granuloma. Pleura: There is no pleural effusion or pneumotho rax. Heart and mediastinum: The heart and the mediastinum are normal. Bones: No acute bony abnormality. IMPRESSION: 1. No acute card iopulmonary disease. Dictated by: Cruz Devlin M.D. on 07/14/2017 at 11: 45 Electronically approved by: Cruz Devlin M.D. on 07/14/2017 at 11:45 Dictated By: CRUZ DEVLIN MD 1145 Transcribed By: ROBERT on 07/14/17 1145 COPY TO: ARLEEN PEPE MD MRI RIGHT KNEE WO [place] [address] Patient Name: NIVIA IGNACIO MR #: [id number] : 1950 Age/Sex: 67/F Req #: [id number] Adm Physician: Ordered by: ARLEEN PEPE MD Report #: [id number] Location: MRI Room/Bed: Procedure: [id number] MRI/MRI RIGHT KNEE WO Exam D ate: 07/01/17 Exam Time: 1238 REPORT STATUS: Si gned TECHNIQUE: Magnetic resonance imaging of the RIGHT KNEE was performed WITHOUT injected contrast. HISTORY: Fall, medial meniscal tear, reporte d history of rheumatoid arthritis COMPARISON: None available. FINDINGS: LIGAMENTS AND TENDONS: ACL: Intact PCL: Intact Collateral ligaments: Intact Iliotibial band: Unremarkable Popliteal tendon: Intact Extensor mechanism: Intact JOINT: Menisci: Medial: Predominantly oblique tear of the body and adjacent posterior horn extending to the tibial articular rosalie face with associated 1.1 cm (AP) x 0.4 cm (ML) x 0.6 cm (CC) meniscal fragment flipped into the inferomedial joint recess. Lateral: Intact Articular Cartilage: Medial Compartment: High-grade to full-thickness erosion of the weightbearing cartilage. Adjacent mild subchondral bone marrow edema and cysti c changes. Lateral Compartment: Low-grade erosion and fissuring of the weight bearing cartilage. Patellofemoral Compartment: Full-thickness erosion at th e patellar apex and adjacent facets. Joint Fluid: Small effusion and s ynovitis. BONES: No focal or infiltrative bone marrow replacing abnorma lity. No acute fracture. SOFT TISSUES: Otherwise, unremarkable. IMPRESSION: 1. Patellofemoral and medial compartment predominant tricompar tmental degenerative changes, including degenerative tearing of the medial men iscus. An acute on chronic tear is possible given the provided history. 2. Reactive synovitis and small associated joint effusion. Signed by: Dr. Graham Nascimento D.O., M.M.M. on 07/01/2017 2:30 PM Dictated By: GRAHAM NASCIMENTO DO [id number] Transcribed By: SUMMER RAMIREZ on 07/01/17 1430 COPY TO: ARLEEN PEPE MD
[2020-02-25] MEDS ORDERED: ONDANSETRON HCL INJ 2MG/ML 2ML 2 MG/ML VIAL ONE (20:46)
[2020-02-25] MEDS ORDERED: SODIUM CHLORIDE 0.9% 1000ML 1,000 ML ONE (20:47)
[2020-02-25] MEDS ORDERED: DIPHENHYDRAMINE HCL INJ 50 MG/ML VIAL ONE (20:47)
[2020-02-25] MEDS ORDERED: DEXAMETHASONE SOD PHOS INJ 4 MG/ML VIAL ONE (20:47)
[2020-02-25] MEDS ORDERED: KETOROLAC TROMETHAMINE 30 MG/ML VIAL ONE (20:47)
[2020-02-25] MEDS ORDERED: DEXAMETHASONE SOD PHOS INJ 4 MG/ML VIAL IV ONE (21:00)
--- NOTE | 2020-02-25 21:11 | Diagnostic Imaging Report ---
Exam: Head CT without contrast History: Headache Comparison studies: None Technique: Axial images were obtained from the skull base to the vertex. Coronal and sagittal images reconstructed from the axial data. Dose modulation, iterative reconstruction, and/or weight based adjustment of the mA/kV was utilized to reduce the radiation dose to as low as reasonably achievable. Radiation dose: Total DLP: 969.14 mGy*cm. Estimated effective dose: DLP x 0.015 Intravenous contrast: None Findings: Scalp: No abnormalities. Bones: No fractures, blastic or lytic lesions. Brain sulci: Mildly prominent. Ventricles: Mild compensatory dilatation. No hydrocephalus. Extra-axial spaces: No masses, no fluid collection. Parenchyma: Scattered ill-defined and confluent hypodensities in the supratentorial white matter are nonspecific but are most compatible with chronic microvascular ischemic changes. No masses, acute hemorrhage, acute or chronic vascular insults. Sellar/suprasellar region: No abnormalities. Craniocervical junction: Patent foramen magnum. No Chiari one malformation. Incidental findings: Bilateral intraocular lens replacements. Atherosclerotic calcifications in the carotid siphons and intradural vertebral arteries. IMPRESSION: 1. No acute intracranial abnormalities. 2. Mild generalized parenchymal volume loss. 3. Mild to moderate chronic microvascular ischemic changes. Signed by: Dr. Nikolai Garcia M.D. on 02/25/2020 8:18 PM
[2020-02-25] MEDS ORDERED: METOCLOPRAMIDE HCL 10 MG/2ML VIAL IV ONE (21:45)
[2020-02-25 22:19] VITALS: BP 139/79
== END 2020-02-25 22:20 | disposition home or self-care (01) ==
LOC: FSED 20:00
DX: R51 Headache (principal); I10 Essential (primary) hypertension; K21.9 Gastro-esophageal reflux disease without esophagitis; M06.9 Rheumatoid arthritis, unspecified; G47.30 Sleep apnea, unspecified
CPT/HCPCS: 70450; 80053; 81003; 85025; 99284; J1100; J1200; J1885; J2405; J2765; J7030

== ENCOUNTER 2020-07-29 11:30 | Emergency (ER) | payer MEDICARE ==
[~2020-07-29] VITALS: Ht 160 cm; Wt 89.1 kg
[2020-07-29] MEDS ORDERED: METHOTREXATE2.5 MG PO (12:21)
[2020-07-29] MEDS ORDERED: ZETIA10 MG PO (12:21)
[2020-07-29] MEDS ORDERED: TYLENOL # 31 EA PO (14:00)
[2020-07-29 14:09] VITALS: BP 127/80
== END 2020-07-29 14:08 | disposition home or self-care (01) ==
LOC: FSED 11:45
DX: R07.89 Other chest pain (principal); S22.32XA Fracture of one rib, left side, initial encounter for closed fracture; W06.XXXA Fall from bed, initial encounter; Y93.84 Activity, sleeping; Y92.003 Bedroom of unspecified non-institutional (private) residence as the place of occurrence of the external cause; R91.8 Other nonspecific abnormal finding of lung field; I10 Essential (primary) hypertension; E78.5 Hyperlipidemia, unspecified; E03.9 Hypothyroidism, unspecified; M06.9 Rheumatoid arthritis, unspecified; Z96.653 Presence of artificial knee joint, bilateral
CPT/HCPCS: 71101; 99283

== ENCOUNTER 2021-05-07 17:00 | Emergency (ER) | payer MEDICARE ==
[~2021-05-07] VITALS: Ht 160 cm; Wt 88.9 kg
[~2021-05-07 17:00] MED LIST changes: +TYLENOL # 31 EA PO; +ZETIA10 MG PO
[2021-05-07] MEDS ORDERED: CASIRIVIMAB/IMDEVIMAB 10 ML in SODIUM CHLORIDE 0.9% 100 ML IV STA (17:49)
[2021-05-07] MEDS ORDERED: SODIUM CHLORIDE 0.9% 100 ML ONE (18:00)
[2021-05-07] MEDS ORDERED: VENTOLIN HFA18 GM INH (18:31)
[2021-05-07] MEDS ORDERED: PREDNISONE20 MG PO (18:31)
[2021-05-07] MEDS ORDERED: AZITHROMYCIN250 MG PO (18:31)
== END 2021-05-07 18:52 | disposition home or self-care (01) ==
LOC: ER 17:25
DX: U07.1 COVID-19 (principal); R05.9 Cough, unspecified; I10 Essential (primary) hypertension; E78.5 Hyperlipidemia, unspecified; E03.9 Hypothyroidism, unspecified; M06.9 Rheumatoid arthritis, unspecified; Z96.653 Presence of artificial knee joint, bilateral
CPT/HCPCS: 99284; J7050

== ENCOUNTER → 2022-01-25 | Outpatient (CLI) | payer MEDICARE ==
[~2022-01-25] MED LIST changes: +AZITHROMYCIN250 MG PO; +PREDNISONE20 MG PO; +VENTOLIN HFA18 GM INH
== END ==
LOC: MRI 08:34
PROVIDERS: ATTEND Specialist
DX: S82.832A Other fracture of upper and lower end of left fibula, initial encounter for closed fracture (principal)

== ENCOUNTER 2022-07-16 12:49 | Outpatient (RCR) | payer MEDICARE | END 2022-08-06 | LOC: OT 12:49 | PROVIDERS: ATTEND Specialist | DX: S52.514D Nondisplaced fracture of right radial styloid process, subsequent encounter for closed fracture with routine healing (principal) ==

== ENCOUNTER 2023-06-07 14:39 | Emergency (ER) | payer MEDICARE ==
[~2023-06-07] VITALS: Ht 160 cm; Wt 80.7 kg
[2023-06-07] MEDS ORDERED: AZITHROMYCIN250 MG PO (15:44)
[2023-06-07 15:59] VITALS: BP 121/72; PULSE 72; RESP 18; O2SAT 99
== END 2023-06-07 15:50 | disposition home or self-care (01) ==
LOC: ER 14:44
DX: R06.02 Shortness of breath (principal); U07.1 COVID-19; I10 Essential (primary) hypertension; E03.9 Hypothyroidism, unspecified; E78.5 Hyperlipidemia, unspecified; M06.9 Rheumatoid arthritis, unspecified; K21.9 Gastro-esophageal reflux disease without esophagitis; Z96.653 Presence of artificial knee joint, bilateral
CPT/HCPCS: 99283